=== PATIENT | male | born 1945 | race Caucasian/White ===

== ENCOUNTER → 2018-07-11 | Outpatient (CLI) | payer MEDICARE, BC ==
[~2018-07-11] MED LIST: ALBU90OI INH; ASPI81CH PO; AZELASTINE137 MCG/0.; AZIT250 PO; B-12500 MCG PO; BENZ100A; BUDE6HFA INH; CARBIDOPA-LEVODOPA PO; CEFD300 PO; CETI5 PO; Carbidopa-Levo1 EACH PO; Cartridge Stam1 EACH; DICL75ER PO; DILT180 PO; DIPATR PO; DOC250 PO; DOCU100 PO; DULO60; FENO145 PO; FENOFIBRATE145 MG PO; FLUT1DIS5 INH; Flonase 0.05% N16 GM INH; GABA300 PO; Humulin R500 UNIT/1; INDO25 PO; Ipratr-Albuterol3 ML INH; LANS15EC PO; LEVCAR10; LISI5 PO; LOSA25 PO; Lopressor 25 mg25 MG PO; METF500 PO; METF500C; METO25; MORP15ER PO; MUPI2TO TOP; Nitrostat0.4 MG SL; Norco 5-325 Ta1 EACH PO; Omega 3 1,0001 EACH PO; PRAV20 PO; PREG150 PO; PREG200; Patanase30.5 GM; Prednisone20 MG PO; Prinivil10 MG; SPIRIVA RESPIMAT4 GM; TRAM50; TRAM50 PO; Tiazac180 MG PO; VENL150ER PO; VITAMIN C PO; Venlafaxine HC150 MG; XARELTO20 MG PO
== END ==
LOC: PLD 07:58 → LAB SHORT 07:58
DX: D22.61 Melanocytic nevi of right upper limb, including shoulder (principal)
CPT/HCPCS: 88305

== ENCOUNTER 2019-03-13 15:49 | Emergency (ER) | payer MEDICARE, BC ==
[~2019-03-13] VITALS: Ht 170.2 cm; Wt 76.2 kg
[~2019-03-13 15:49] MED LIST changes: +METO10 PO; +Zofran Odt4 MG SL
[2019-03-13 16:53] LABS: Source, Urine Clean Catch
[2019-03-13 16:56] LABS: Bilirubin, Urine Neg (Neg); Blood, Urine Neg (Neg); Glucose Qualitative, Urine 4+ (Neg); Ketones, Urine 1+ (Neg); Leukocyte Esterase, Urine Neg (Neg); Nitrite, Urine Neg (Neg); Protein, Urine Neg (Neg); Urobilinogen, Urine NORM (Normal)
[2019-03-13 17:02] LABS: BASOPHILS ABSOLUTE AUTO 0.04 K/mm3 (0.00-0.23); BASOPHILS PERCENT AUTO 1 % (0-2); EOSINOPHILS ABSOLUTE AUTO 0.57 K/mm3 (0.00-0.68); EOSINOPHILS PERCENT AUTO 8 % (0-6); Hemoglobin 15.7 g/dL (13.5-17.5); IMMATURE GRAN ABSOLUTE AUTO 0.04 K/mm3 (0.00-0.10); IMMATURE GRAN PERCENT AUTO 1 % (0-1); LYMPHOCYTES ABSOLUTE AUTO 1.78 K/mm3 (0.84-5.20); LYMPHOCYTES PERCENT AUTO 24 % (21-46); MONOCYTES ABSOLUTE AUTO 0.76 K/mm3 (0.16-1.47); MONOCYTES PERCENT AUTO 10 % (4-13); Mean Corpuscular HGB 30.8 pg (26.0-34.0); Mean Corpuscular HGB Conc 34.1 g/dL (31.5-36.5); Mean Corpuscular Volume 90 fL (80-100); Mean Platelet Volume 10.6 fL (9.1-12.4); NEUTROPHILS ABSOLUTE AUTO 4.35 K/mm3 (1.96-9.15); NEUTROPHILS PERCENT AUTO 58 % (41-73); Platelet Count 272 K/mm3 (150-400); RDW Coefficient Variation 12.2 % (11.7-14.2); RDW Standard Deviation 40.4 fL (35.1-46.3); White Blood Cell Count 7.54 K/mm3 (4.00-11.30)
[2019-03-13 17:10] LABS: Color, Urine Yellow (P-Yellow)
[2019-03-13 17:11] LABS: Appearance, Urine Clear (Clear)
[2019-03-13 17:29] LABS: Alanine Aminotransfer (ALT/SGP 18 U/L (12-78); Albumin, Blood 3.8 g/dL (3.4-5.0); Albumin/Globulin Ratio 1.3 (0.8-1.8); Alk Phos 80 U/L (50-136); Anion Gap 8 mmol/L (6-16); Aspartate Aminotrans (AST/SGOT 7 U/L (12-37); Bilirubin, Total 0.3 mg/dL (0.1-1.0); Blood Urea Nitrogen 12 mg/dL (8-24); Bun/Creatinine Ratio 21.9 (12.0-20.0); CO2, Blood 26 mmol/L (21-32); Calcium, Blood 8.7 mg/dL (8.5-10.1); Chloride, Blood 102 mmol/L (98-108); Creatinine, Blood 0.55 mg/dL (0.60-1.20); Glomerular Filtration Rate >60 (60-); Glucose, Blood 267 mg/dL (70-99); Magnesium, Blood 2.1 mg/dL (1.6-2.4); Sodium, Blood 136 mmol/L (136-145); Total Protein, Blood 6.8 g/dL (6.4-8.2)
[2019-03-13] MEDS ORDERED: DULO60 PO (18:07)
[2019-03-13] MEDS ORDERED: LIRA0.6P (18:09)
[2019-03-13] MEDS ORDERED: HEARTBURN TREAT15 MG PO (18:09)
[2019-03-13] MEDS ORDERED: METF500C PO (18:10)
[2019-03-13] MEDS ORDERED: METF500 (18:10)
[2019-03-13] MEDS ORDERED: METO25 PO (18:10)
[2019-03-13] MEDS ORDERED: ONDA4ODT MM (18:46)
== END 2019-03-13 19:10 | disposition home or self-care (01) ==
LOC: ER 15:49
PROVIDERS: Physician Assistant
DX: E86.0 Dehydration (principal); R11.2 Nausea with vomiting, unspecified; R19.7 Diarrhea, unspecified; R10.9 Unspecified abdominal pain; Z91.048 Other nonmedicinal substance allergy status; Z88.1 Allergy status to other antibiotic agents; Z79.899 Other long term (current) drug therapy; Z79.891 Long term (current) use of opiate analgesic; E11.40 Type 2 diabetes mellitus with diabetic neuropathy, unspecified; Z87.891 Personal history of nicotine dependence
CPT/HCPCS: 36415; 71046; 80053; 81003; 83690; 83735; 84484; 85025; 93005; 93010; 96361; 96374; 99284-25; A9270-GY; J2405; J7030

== ENCOUNTER → 2019-03-26 | Outpatient (CLI) | payer MEDICARE, BC ==
[~2019-03-26] MED LIST changes: +DULO60 PO; +HEARTBURN TREAT15 MG PO; +LIRA0.6P; +METF500; +METF500C PO; +METO25 PO; +ONDA4ODT MM
== END | disposition home or self-care (01) ==
LOC: LAB 12:39 → LAB SHORT 12:39
DX: M19.90 Unspecified osteoarthritis, unspecified site (principal); R61 Generalized hyperhidrosis
CPT/HCPCS: 81050; 87493

== ENCOUNTER → 2019-03-29 | Outpatient (CLI) | payer MEDICARE, BC ==
[2019-03-29 12:58] LABS: Adenovirus F 40/41 Not Detected (NOT DETECT); Astrovirus Not Detected (NOT DETECT); Campylobacter Sp Not Detected (NOT DETECT); Cryptosporidium Not Detected (NOT DETECT); Cyclospora Cayetanensis Not Detected (NOT DETECT); E. Coli O157 Not Detected (NOT DETECT); Entamoeba Histolytica Not Detected (NOT DETECT); Enteroaggregative E. coli-EAEC Not Detected (NOT DETECT); Enteropathogenic E. coli-EPEC Not Detected (NOT DETECT); Enterotoxigenic E. coli-ETEC Not Detected (NOT DETECT); Giardia Lamblia Not Detected (NOT DETECT); Norovirus GI/GII Not Detected (NOT DETECT); Plesiomonas Shigelloides Not Detected (NOT DETECT); Rotavirus A Not Detected (NOT DETECT); Salmonella Sp Not Detected (NOT DETECT); Sapovirus Not Detected (NOT DETECT); Shiga Toxin-prod E. coli-STEC Not Detected (NOT DETECT); Shigella/Enteroin E. coli-EIEC Not Detected (NOT DETECT); Vibrio Cholerae Not Detected (NOT DETECT); Vibrio Sp Not Detected (NOT DETECT); Yersinia Enterocolitica Not Detected (NOT DETECT)
== END | disposition home or self-care (01) ==
LOC: LAB SHORT 10:04 → LAB 10:04 → LAB FUT 03-22 12:50
PROVIDERS: Internal Medicine
DX: R19.7 Diarrhea, unspecified (principal)
CPT/HCPCS: 87507

== ENCOUNTER 2020-04-15 08:53 | Day surgery (SDC) | payer MEDICARE, BC ==
[~2020-04-15] VITALS: Ht 172.7 cm; Wt 80.1 kg
--- NOTE | 2020-04-15 10:47 | NUR ---
04/15/20 1047 Heydi Galeana 200UNITS BOTULINUMTOXINA MIXED WITH 5CC NS INJECTED BY
== END 2020-04-15 11:17 | disposition home or self-care (01) ==
LOC: ORSCSDS 08:53
PROVIDERS: Internal Medicine Gastroenterology
PROC: 3E0G8GC Introduction of Other Therapeutic Substance into Upper GI, Via Natural or Artificial Opening Endoscopic (ICD-10-PCS; principal; 2020-04-15 10:45)
DX: K31.84 Gastroparesis (principal); R11.2 Nausea with vomiting, unspecified; K20.9 Esophagitis, unspecified; K29.80 Duodenitis without bleeding; I10 Essential (primary) hypertension; E11.9 Type 2 diabetes mellitus without complications; G47.33 Obstructive sleep apnea (adult) (pediatric); Z87.891 Personal history of nicotine dependence; Z79.899 Other long term (current) drug therapy; Z79.84 Long term (current) use of oral hypoglycemic drugs; J45.909 Unspecified asthma, uncomplicated
CPT/HCPCS: 82947; J0585; J2704; J7120

== ENCOUNTER → 2020-07-24 | Outpatient (CLI) | payer MEDICARE, BC ==
[2020-07-26 15:17] LABS: Adenovirus F 40/41 Not Detected (NOT DETECT); Astrovirus Not Detected (NOT DETECT); Campylobacter Sp Not Detected (NOT DETECT); Cryptosporidium Not Detected (NOT DETECT); Cyclospora Cayetanensis Not Detected (NOT DETECT); E. Coli O157 Not Detected (NOT DETECT); Entamoeba Histolytica Not Detected (NOT DETECT); Enteroaggregative E. coli-EAEC Not Detected (NOT DETECT); Enteropathogenic E. coli-EPEC Not Detected (NOT DETECT); Enterotoxigenic E. coli-ETEC Not Detected (NOT DETECT); Giardia Lamblia Not Detected (NOT DETECT); Norovirus GI/GII Not Detected (NOT DETECT); Plesiomonas Shigelloides Not Detected (NOT DETECT); Rotavirus A Not Detected (NOT DETECT); Salmonella Sp Not Detected (NOT DETECT); Sapovirus Not Detected (NOT DETECT); Shiga Toxin-prod E. coli-STEC Not Detected (NOT DETECT); Shigella/Enteroin E. coli-EIEC Not Detected (NOT DETECT); Vibrio Cholerae Not Detected (NOT DETECT); Vibrio Sp Not Detected (NOT DETECT); Yersinia Enterocolitica Not Detected (NOT DETECT)
[2020-07-28 12:07] LABS: FATS, NEUTRAL Normal (.); FATS, TOTAL Normal (.)
== END | disposition home or self-care (01) ==
LOC: LAB EV 17:30 → LAB SHORT 17:30
PROVIDERS: Internal Medicine Gastroenterology
DX: R19.7 Diarrhea, unspecified (principal)
CPT/HCPCS: 0097U; 82656; 82705; 87177; 87209; 89055

== ENCOUNTER 2020-12-30 09:37 | Day surgery (SDC) | payer MEDICARE, BC ==
[~2020-12-30] VITALS: Ht 172.7 cm; Wt 78.6 kg
[~2020-12-30 09:37] MED LIST changes: +FD GUARD PO; +LOPE2C PO; +LOSA50 PO; +NITR.4SL SL; +PREG200 PO; +SPIRIVA RESPIMAT4 G3 INH; +VENL75ER PO
--- NOTE | 2020-12-30 10:29 | NUR ---
12/30/[address] WAS NOTIFIED THAT CBG WAS 305. HE VERBALIZED UNDERSTANDING AND HAS NO FURTHER ORDERS AT THIS TIME
== END 2020-12-30 12:30 | disposition home or self-care (01) ==
LOC: ORSCSDS 09:37
PROVIDERS: Internal Medicine Gastroenterology
PROC: 0DBK8ZX Excision of Ascending Colon, Via Natural or Artificial Opening Endoscopic, Diagnostic (ICD-10-PCS; principal; 2020-12-30 11:00)
PROC: 0DBH8ZX Excision of Cecum, Via Natural or Artificial Opening Endoscopic, Diagnostic (ICD-10-PCS; principal; 2020-12-30 11:00)
PROC: 0DBL8ZX Excision of Transverse Colon, Via Natural or Artificial Opening Endoscopic, Diagnostic (ICD-10-PCS; principal; 2020-12-30 11:00)
DX: Z12.11 Encounter for screening for malignant neoplasm of colon (principal); D12.0 Benign neoplasm of cecum; D12.2 Benign neoplasm of ascending colon; D12.3 Benign neoplasm of transverse colon; K57.30 Diverticulosis of large intestine without perforation or abscess without bleeding; Z86.010 Personal history of colon polyps; Z80.0 Family history of malignant neoplasm of digestive organs; G47.33 Obstructive sleep apnea (adult) (pediatric); E11.9 Type 2 diabetes mellitus without complications; I10 Essential (primary) hypertension; J44.9 Chronic obstructive pulmonary disease, unspecified; Z79.84 Long term (current) use of oral hypoglycemic drugs; Z79.899 Other long term (current) drug therapy; Z87.891 Personal history of nicotine dependence
CPT/HCPCS: 82947; 88305; J2704; J7120

== ENCOUNTER 2021-02-10 17:01 | Inpatient (IN) | payer OTHER, MEDICARE, BC ==
[~2021-02-10] VITALS: Ht 172.7 cm; Wt 74.0 kg
[2021-02-10 17:47] LABS: Troponin I 0.015 ng/mL (0.000-0.040)
[2021-02-10 17:52] LABS: Alanine Aminotransfer (ALT/SGP 31 U/L (12-78); Albumin, Blood 3.7 g/dL (3.4-5.0); Albumin/Globulin Ratio 1.2 (0.8-1.8); Alk Phos 57 U/L (50-136); Anion Gap 9 mmol/L (6-16); Aspartate Aminotrans (AST/SGOT 17 U/L (12-37); BASOPHILS ABSOLUTE AUTO 0.06 K/mm3 (0.00-0.23); BASOPHILS PERCENT AUTO 1 % (0-2); Bilirubin, Total 0.4 mg/dL (0.1-1.0); Blood Urea Nitrogen 17 mg/dL (8-24); Bun/Creatinine Ratio 23.4 (12.0-20.0); CO2, Blood 21 mmol/L (21-32); Calcium, Blood 9.4 mg/dL (8.5-10.1); Chloride, Blood 109 mmol/L (98-108); Creatinine, Blood 0.73 mg/dL (0.60-1.20); EOSINOPHILS ABSOLUTE AUTO 0.43 K/mm3 (0.00-0.68); EOSINOPHILS PERCENT AUTO 5 % (0-6); Glomerular Filtration Rate >60 (60-); Glucose, Blood 200 mg/dL (70-99); Hemoglobin 15.9 g/dL (13.5-17.5); IMMATURE GRAN ABSOLUTE AUTO 0.08 K/mm3 (0.00-0.10); IMMATURE GRAN PERCENT AUTO 1 % (0-1); LYMPHOCYTES ABSOLUTE AUTO 2.35 K/mm3 (0.84-5.20); LYMPHOCYTES PERCENT AUTO 28 % (21-46); MONOCYTES ABSOLUTE AUTO 1.15 K/mm3 (0.16-1.47); MONOCYTES PERCENT AUTO 14 % (4-13); Mean Corpuscular HGB 31.5 pg (26.0-34.0); Mean Corpuscular HGB Conc 34.6 g/dL (31.5-36.5); Mean Corpuscular Volume 91 fL (80-100); Mean Platelet Volume 11.3 fL (9.1-12.4); NEUTROPHILS ABSOLUTE AUTO 4.35 K/mm3 (1.96-9.15); NEUTROPHILS PERCENT AUTO 52 % (41-73); Platelet Count 257 K/mm3 (150-400); Potassium, Blood 4.5 mmol/L (3.5-5.5); RDW Coefficient Variation 12.7 % (11.7-14.2); RDW Standard Deviation 42.1 fL (35.1-46.3); Red Blood Cell Count 5.04 M/mm3 (4.30-5.90); Sodium, Blood 139 mmol/L (136-145); Total Protein, Blood 6.7 g/dL (6.4-8.2); White Blood Cell Count 8.42 K/mm3 (4.00-11.30)
[2021-02-10] MEDS ORDERED: FENO145 PO (18:53)
[2021-02-10] MEDS ORDERED: CYCL10 PO (18:53)
[2021-02-10] MEDS ORDERED: LISI10 PO (18:54)
[2021-02-10] MEDS ORDERED: METOPROLOL SUCC25 MG PO (18:54)
[2021-02-10] MEDS ORDERED: DONEPEZIL HCL10 MG PO (18:55)
[2021-02-10] MEDS ORDERED: DILT180 PO (18:55)
[2021-02-10] MEDS ORDERED: CARBIDOPA-LEVO1 EA21 PO (18:56)
[2021-02-10] MEDS ORDERED: ATOR40TA PO (18:56)
[2021-02-10] MEDS ORDERED: METF500C PO (18:57)
[2021-02-10] MEDS ORDERED: PRAMIPEXOLE0.125 M1 PO (18:57)
[2021-02-10] MEDS ORDERED: BASAGLAR K100 UNIT/1 SC (18:58)
[2021-02-10] MEDS ORDERED: NOVOLOG FL100 UNIT/3 SC ×2 (18:58→20:04)
[2021-02-10] MEDS ORDERED: DULO60 PO (18:58)
[2021-02-10] MEDS ORDERED: Acarbose25 MG PO (18:59)
[2021-02-10] MEDS ORDERED: LANS15EC PO (21:14)
[2021-02-10] MEDS ORDERED: MORPHINE SULFAT15 M1 PO (21:16)
[2021-02-10] MEDS ORDERED: JARDIANCE25 MG PO (21:22)
[2021-02-11 09:41] LABS: Influenza A, PCR NEGATIVE (NEGATIVE); Influenza B, PCR NEGATIVE (NEGATIVE); Resp Syncytial Virus, PCR NEGATIVE (NEGATIVE); SARS-Cov-2 (COVID-19) PCR, MMC NEGATIVE (NEGATIVE)
[2021-02-12 04:52] LABS: BASOPHILS ABSOLUTE AUTO 0.04 K/mm3 (0.00-0.23); BASOPHILS PERCENT AUTO 1 % (0-2); EOSINOPHILS ABSOLUTE AUTO 0.32 K/mm3 (0.00-0.68); EOSINOPHILS PERCENT AUTO 4 % (0-6); Hematocrit 45.1 % (37.0-53.0); Hemoglobin 15.5 g/dL (13.5-17.5); IMMATURE GRAN ABSOLUTE AUTO 0.04 K/mm3 (0.00-0.10); IMMATURE GRAN PERCENT AUTO 1 % (0-1); LYMPHOCYTES ABSOLUTE AUTO 1.72 K/mm3 (0.84-5.20); LYMPHOCYTES PERCENT AUTO 24 % (21-46); MONOCYTES ABSOLUTE AUTO 0.86 K/mm3 (0.16-1.47); MONOCYTES PERCENT AUTO 12 % (4-13); Mean Corpuscular HGB 30.8 pg (26.0-34.0); Mean Corpuscular HGB Conc 34.4 g/dL (31.5-36.5); Mean Corpuscular Volume 90 fL (80-100); NEUTROPHILS ABSOLUTE AUTO 4.31 K/mm3 (1.96-9.15); NEUTROPHILS PERCENT AUTO 59 % (41-73); Platelet Count 240 K/mm3 (150-400); RDW Coefficient Variation 12.7 % (11.7-14.2); RDW Standard Deviation 41.1 fL (35.1-46.3); Red Blood Cell Count 5.04 M/mm3 (4.30-5.90); White Blood Cell Count 7.29 K/mm3 (4.00-11.30)
[2021-02-12 05:16] LABS: Anion Gap 6 mmol/L (6-16); Blood Urea Nitrogen 12 mg/dL (8-24); Bun/Creatinine Ratio 17.6 (12.0-20.0); CO2, Blood 24 mmol/L (21-32); Calcium, Blood 8.6 mg/dL (8.5-10.1); Chloride, Blood 110 mmol/L (98-108); Creatinine, Blood 0.68 mg/dL (0.60-1.20); Glomerular Filtration Rate >60 (60-); Glucose, Blood 244 mg/dL (70-99); Sodium, Blood 140 mmol/L (136-145)
[2021-02-12] MEDS ORDERED: ASPI81CH PO (09:59)
[2021-02-12] MEDS ORDERED: TICA90TA PO (10:00)
== END 2021-02-12 11:35 | disposition home or self-care (01) | DRG 247 ==
LOC: ER 17:01 → PCU 17:02
PROVIDERS: Emergency Medicine; Internal Medicine Cardiovascular Disease; ADMIT Internal Medicine
PROC: 4A023N7 Measurement of Cardiac Sampling and Pressure, Left Heart, Percutaneous Approach (ICD-10-PCS; principal; 2021-02-11)
PROC: 027034Z Dilation of Coronary Artery, One Artery with Drug-eluting Intraluminal Device, Percutaneous Approach (ICD-10-PCS; 2021-02-11)
PROC: B2111ZZ Fluoroscopy of Multiple Coronary Arteries using Low Osmolar Contrast (ICD-10-PCS; 2021-02-11)
PROC: 4A033BC Measurement of Arterial Pressure, Coronary, Percutaneous Approach (ICD-10-PCS; 2021-02-11)
DX: I21.4 Non-ST elevation (NSTEMI) myocardial infarction (principal); I42.1 Obstructive hypertrophic cardiomyopathy; Z66 Do not resuscitate; E11.40 Type 2 diabetes mellitus with diabetic neuropathy, unspecified; G20 Parkinson's disease; G47.33 Obstructive sleep apnea (adult) (pediatric); K21.9 Gastro-esophageal reflux disease without esophagitis; I25.10 Atherosclerotic heart disease of native coronary artery without angina pectoris; I10 Essential (primary) hypertension; E78.5 Hyperlipidemia, unspecified; H91.90 Unspecified hearing loss, unspecified ear; Z20.822 Contact with and (suspected) exposure to COVID-19; Z98.890 Other specified postprocedural states; Z90.49 Acquired absence of other specified parts of digestive tract; Z89.021 Acquired absence of right finger(s); Z87.891 Personal history of nicotine dependence; Z88.8 Allergy status to other drugs, medicaments and biological substances; Z91.048 Other nonmedicinal substance allergy status; Z79.4 Long term (current) use of insulin; Z79.899 Other long term (current) drug therapy; Z86.711 Personal history of pulmonary embolism
CPT/HCPCS: 0241U; 36415; 71046; 76937; 80048; 80053; 82947; 83880; 84484; 85025; 85347; 85379; 85730; 93005; 93010; 93306; 93454; 93571; 94660; 94762; 96372; 96375; 99152; 99285-25; A9270; A9270-GY; C1725; C1769; C1874; C1887; C1894; C9600; G0378; J1644; J1650; J2250; J3010; J7030; J7040; J7050; Q9967

== ENCOUNTER 2022-04-20 12:04 | Emergency (ER) | payer OTHER, BC ==
[~2022-04-20] VITALS: Ht 170.2 cm; Wt 81.7 kg
[~2022-04-20 12:04] MED LIST changes: +ATOR40TA PO; +Acarbose25 MG PO; +BASAGLAR K100 UNIT/1 SC; +CARBIDOPA-LEVO1 EA21 PO; +CYCL10 PO; +DONEPEZIL HCL10 MG PO; +JARDIANCE25 MG PO; +LISI10 PO; +METOPROLOL SUCC25 MG PO; +MORPHINE SULFAT15 M1 PO; +NOVOLOG FL100 UNIT/3 SC; +PRAMIPEXOLE0.125 M1 PO; +TICA90TA PO
[2022-04-20 12:57] LABS: BASOPHILS ABSOLUTE AUTO 0.05 K/mm3 (0.00-0.23); BASOPHILS PERCENT AUTO 0 % (0-2); EOSINOPHILS ABSOLUTE AUTO 0.37 K/mm3 (0.00-0.68); EOSINOPHILS PERCENT AUTO 3 % (0-6); Hematocrit 46.1 % (37.0-53.0); Hemoglobin 15.8 g/dL (13.5-17.5); IMMATURE GRAN ABSOLUTE AUTO 0.06 K/mm3 (0.00-0.10); IMMATURE GRAN PERCENT AUTO 0 % (0-1); LYMPHOCYTES ABSOLUTE AUTO 1.69 K/mm3 (0.84-5.20); LYMPHOCYTES PERCENT AUTO 12 % (21-46); MONOCYTES PERCENT AUTO 9 % (4-13); Mean Corpuscular HGB 30.5 pg (26.0-34.0); Mean Corpuscular HGB Conc 34.3 g/dL (31.5-36.5); Mean Corpuscular Volume 89 fL (80-100); NEUTROPHILS ABSOLUTE AUTO 10.38 K/mm3 (1.96-9.15); NEUTROPHILS PERCENT AUTO 75 % (41-73); Platelet Count 252 K/mm3 (150-400); RDW Coefficient Variation 12.9 % (11.7-14.2); Red Blood Cell Count 5.18 M/mm3 (4.30-5.90); White Blood Cell Count 13.85 K/mm3 (4.00-11.30)
[2022-04-20 13:26] LABS: Albumin, Blood 3.6 g/dL (3.4-5.0); Albumin/Globulin Ratio 1.2 (0.8-1.8); Bilirubin, Total 0.6 mg/dL (0.1-1.0); Bun/Creatinine Ratio 30.4 (12.0-20.0); Calcium, Blood 9.4 mg/dL (8.5-10.1); Creatinine, Blood 0.62 mg/dL (0.60-1.20); Globulin, Blood 3.1 g/dL (2.2-4.0); Potassium, Blood 4.6 mmol/L (3.5-5.5); Total Protein, Blood 6.7 g/dL (6.4-8.2)
[2022-04-20] MEDS ORDERED: Doxycycline Mo100 M1 PO (16:36)
== END 2022-04-20 17:16 | disposition home or self-care (01) ==
LOC: ER 12:04
PROVIDERS: Physician Assistant
DX: J18.9 Pneumonia, unspecified organism (principal); R00.8 Other abnormalities of heart beat; E11.40 Type 2 diabetes mellitus with diabetic neuropathy, unspecified; Z96.41 Presence of insulin pump (external) (internal); Z87.891 Personal history of nicotine dependence
CPT/HCPCS: 36415; 71046; 80053; 83690; 83880; 84484; 85025; J0456; J0696; J7050

== ENCOUNTER 2022-12-21 08:58 | Emergency (ER) | payer OTHER ==
[~2022-12-21] VITALS: Ht 172.7 cm; Wt 81.7 kg
[~2022-12-21 08:58] MED LIST changes: +Doxycycline Mo100 M1 PO
[2022-12-21] MEDS ORDERED: PREG50 PO (09:19)
[2022-12-21] MEDS ORDERED: HYDACE10B PO (09:20)
[2022-12-21] MEDS ORDERED: METF500 PO (09:21)
[2022-12-21 09:22] LABS: BASOPHILS ABSOLUTE AUTO 0.09 K/mm3 (0.00-0.23); BASOPHILS PERCENT AUTO 1 % (0-2); EOSINOPHILS ABSOLUTE AUTO 0.22 K/mm3 (0.00-0.68); EOSINOPHILS PERCENT AUTO 1 % (0-6); Hematocrit 52.4 % (37.0-53.0); Hemoglobin 17.9 g/dL (13.5-17.5); IMMATURE GRAN ABSOLUTE AUTO 0.25 K/mm3 (0.00-0.10); IMMATURE GRAN PERCENT AUTO 2 % (0-1); LYMPHOCYTES ABSOLUTE AUTO 1.92 K/mm3 (0.84-5.20); LYMPHOCYTES PERCENT AUTO 12 % (21-46); MONOCYTES ABSOLUTE AUTO 1.48 K/mm3 (0.16-1.47); MONOCYTES PERCENT AUTO 9 % (4-13); Mean Corpuscular HGB 31.3 pg (26.0-34.0); Mean Corpuscular HGB Conc 34.2 g/dL (31.5-36.5); Mean Corpuscular Volume 92 fL (80-100); Mean Platelet Volume 10.9 fL (9.1-12.4); NEUTROPHILS ABSOLUTE AUTO 11.73 K/mm3 (1.96-9.15); NEUTROPHILS PERCENT AUTO 75 % (41-73); Platelet Count 308 K/mm3 (150-400); RDW Coefficient Variation 12.6 % (11.7-14.2); RDW Standard Deviation 42.9 fL (35.1-46.3); Red Blood Cell Count 5.72 M/mm3 (4.30-5.90); White Blood Cell Count 15.69 K/mm3 (4.00-11.30)
[2022-12-21] MEDS ORDERED: OZEMPIC1 MG/0.72 (09:22)
[2022-12-21 09:56] LABS: Albumin, Blood 3.2 g/dL (3.4-5.0); Albumin/Globulin Ratio 0.9 (0.8-1.8); Bilirubin, Total 0.7 mg/dL (0.1-1.0); Bun/Creatinine Ratio 21.4 (12.0-20.0); Calcium, Blood 9.6 mg/dL (8.5-10.1); Creatinine, Blood 1.03 mg/dL (0.60-1.20); Globulin, Blood 3.5 g/dL (2.2-4.0); Potassium, Blood 4.8 mmol/L (3.5-5.5); Total Protein, Blood 6.7 g/dL (6.4-8.2)
[2022-12-21] MEDS ORDERED: Levaquin500 MG PO (12:43)
== END 2022-12-21 13:09 | disposition home or self-care (01) ==
LOC: ER 08:58
PROVIDERS: Emergency Medicine
DX: J44.1 Chronic obstructive pulmonary disease with (acute) exacerbation (principal); Z91.048 Other nonmedicinal substance allergy status; Z88.1 Allergy status to other antibiotic agents; Z79.899 Other long term (current) drug therapy; Z79.4 Long term (current) use of insulin; E11.40 Type 2 diabetes mellitus with diabetic neuropathy, unspecified; I25.2 Old myocardial infarction; Z87.891 Personal history of nicotine dependence
CPT/HCPCS: 71046; 80053; 84484; 85025; 93005; 93010; 99285-25

== ENCOUNTER → 2023-03-10 | Outpatient (CLI) | payer MEDICARE, BC ==
[~2023-03-10] MED LIST changes: +ALOGLIPTIN25 M7 PO; +AMOCLA875 PO; +CARBIDOPA-LEVO1 EA18 PO; +DOXY100 PO; +HYDACE10B PO; +Levaquin500 MG PO; +MS CONTIN15 MG PO; +OZEMPIC1 MG/0.72; +Omeprazole20 M1 PO; +PREG50 PO
[2023-03-11 18:48] LABS: Microalb/Creat Ratio UR, Rand Unable to Calculate mg/g (0.000-30.000); Microalbumin, Random Urine <5.000 mg/L (0.000-20.000)
== END | disposition home or self-care (01) ==
LOC: LAB 18:00 → LAB SHORT 18:00
PROVIDERS: Internal Medicine Endocrinology, Diabetes & Metabolism
DX: E11.65 Type 2 diabetes mellitus with hyperglycemia (principal)
CPT/HCPCS: 82043; 82570

== ENCOUNTER 2024-04-21 17:51 | Inpatient (IN) | payer MEDICARE, BC ==
[~2024-04-21] VITALS: Ht 172.7 cm; Wt 74.3 kg
[~2024-04-21 17:51] MED LIST changes: +ACET325 PO; +ATOR10 PO; +Aspir 8181 MG PO; +DULO30 PO; +Methocarbamol500 MG PO; +NOVOLIN 70100 UNIT/3 SC; +Norco 10-325 T1 EACH PO; -OZEMPIC1 MG/0.72; +OZEMPIC1 MG/0.72 SC; +TAMS.4ER PO
[2024-04-21 18:16] LABS: BASOPHILS ABSOLUTE AUTO 0.07 K/mm3 (0.00-0.23); BASOPHILS PERCENT AUTO 1 % (0-2); EOSINOPHILS ABSOLUTE AUTO 0.34 K/mm3 (0.00-0.68); EOSINOPHILS PERCENT AUTO 5 % (0-6); Hemoglobin 15.8 g/dL (13.5-17.5); IMMATURE GRAN ABSOLUTE AUTO 0.05 K/mm3 (0.00-0.10); IMMATURE GRAN PERCENT AUTO 1 % (0-1); LYMPHOCYTES ABSOLUTE AUTO 1.58 K/mm3 (0.84-5.20); LYMPHOCYTES PERCENT AUTO 22 % (21-46); MONOCYTES ABSOLUTE AUTO 1.11 K/mm3 (0.16-1.47); MONOCYTES PERCENT AUTO 15 % (4-13); Mean Corpuscular HGB 31.2 pg (26.0-34.0); Mean Corpuscular HGB Conc 34.3 g/dL (31.5-36.5); Mean Corpuscular Volume 91 fL (80-100); Mean Platelet Volume 10.9 fL (9.1-12.4); NEUTROPHILS ABSOLUTE AUTO 4.14 K/mm3 (1.96-9.15); NEUTROPHILS PERCENT AUTO 57 % (41-73); Platelet Count 252 K/mm3 (150-400); RDW Coefficient Variation 13.7 % (11.7-14.2); Red Blood Cell Count 5.07 M/mm3 (4.30-5.90); White Blood Cell Count 7.29 K/mm3 (4.00-11.30)
[2024-04-21 18:28] LABS: Albumin, Blood 3.4 g/dL (3.4-5.0); Albumin/Globulin Ratio 1.2 (0.8-1.8); Bilirubin, Total 0.3 mg/dL (0.1-1.0); Bun/Creatinine Ratio 23.6 (12.0-20.0); Calcium, Blood 8.9 mg/dL (8.5-10.1); Creatinine, Blood 0.64 mg/dL (0.60-1.20); Globulin, Blood 2.9 g/dL (2.2-4.0); Potassium, Blood 4.1 mmol/L (3.5-5.5); Total Protein, Blood 6.3 g/dL (6.4-8.2)
[2024-04-21] MEDS ORDERED: NS 1,000 ML IV SCH (19:10)
[2024-04-21] MEDS ORDERED: Ondansetron HCl 2 MG / ML 2ML Vial IV PRN (22:45)
[2024-04-21] MEDS ORDERED: Acetaminophen 325 MG TABLET PO PRN (22:45)
[2024-04-21] MEDS ORDERED: Lactated Ringer's 1,000 ML IV SCH (23:00)
[2024-04-22] VITALS (34 sets, daily range): BP systolic 100–160; BP diastolic 52–79
--- NOTE | 2024-04-22 00:13 | NUR ---
[facility] TO [facility] CALL [facility] TO [facility]'S MEDICAL RECORDS AT 0010. SPOKE WITH CARLOS AND SHE STATED SHE WILL FAX THEM TO [phone].
[2024-04-22] MEDS ORDERED: Methocarbamol 500 MG Tab PO PRN (00:50)
--- NOTE | 2024-04-22 01:22 | NUR ---
RECEVIED REPORT FROM [facility] IN ED. PATIENT ON ARRIVAL TO ICU IS A&O X4. NEURO IS INTACT EXCEPT FOR NUMBNESS/TINGLING IN ALL EXTERMITES AT BASELINE. CARDIAC PATIENT IN NSR, SBP 90-120S. RESP PATIETN IS ON RA, LUNGS SOUND CLEAR. PATIENT VOIDED BY URINAL. LR RUNNING AT 75. PLAN FOR MRI IN THE AM.
[2024-04-22 03:17] LABS: BASOPHILS ABSOLUTE AUTO 0.05 K/mm3 (0.00-0.23); BASOPHILS PERCENT AUTO 1 % (0-2); EOSINOPHILS ABSOLUTE AUTO 0.44 K/mm3 (0.00-0.68); EOSINOPHILS PERCENT AUTO 5 % (0-6); Hematocrit 42.6 % (37.0-53.0); Hemoglobin 14.5 g/dL (13.5-17.5); IMMATURE GRAN ABSOLUTE AUTO 0.05 K/mm3 (0.00-0.10); IMMATURE GRAN PERCENT AUTO 1 % (0-1); LYMPHOCYTES ABSOLUTE AUTO 2.34 K/mm3 (0.84-5.20); LYMPHOCYTES PERCENT AUTO 27 % (21-46); MONOCYTES ABSOLUTE AUTO 1.12 K/mm3 (0.16-1.47); MONOCYTES PERCENT AUTO 13 % (4-13); Mean Corpuscular HGB 31.3 pg (26.0-34.0); Mean Corpuscular Volume 92 fL (80-100); NEUTROPHILS ABSOLUTE AUTO 4.63 K/mm3 (1.96-9.15); NEUTROPHILS PERCENT AUTO 54 % (41-73); Platelet Count 223 K/mm3 (150-400); RDW Coefficient Variation 13.9 % (11.7-14.2); RDW Standard Deviation 47.1 fL (35.1-46.3); Red Blood Cell Count 4.64 M/mm3 (4.30-5.90); White Blood Cell Count 8.63 K/mm3 (4.00-11.30)
[2024-04-22 03:52] LABS: Magnesium, Blood 2.3 mg/dL (1.6-2.4)
[2024-04-22 03:53] LABS: Albumin/Globulin Ratio 1.1 (0.8-1.8); Bilirubin, Total 0.3 mg/dL (0.1-1.0); Bun/Creatinine Ratio 22.8 (12.0-20.0); Calcium, Blood 8.8 mg/dL (8.5-10.1); Creatinine, Blood 0.66 mg/dL (0.60-1.20); Globulin, Blood 2.7 g/dL (2.2-4.0); Potassium, Blood 4.1 mmol/L (3.5-5.5); Total Protein, Blood 5.7 g/dL (6.4-8.2)
[2024-04-22] MEDS ORDERED: Insulin Regular 100 UNIT/ML 10ML Vial SC SCH (07:30)
[2024-04-22] MEDS ORDERED: Insulin Isoph 70 / Reg 30 100 Unit/ML 10ML Vial SC SCH (07:30)
[2024-04-22] MEDS ORDERED: Aspirin 81 MG Chew PO SCH (09:00)
[2024-04-22] MEDS ORDERED: DULoxetine HCL 60 MG Capsule DR PO SCH (09:00)
[2024-04-22] MEDS ORDERED: Docusate Sodium 100 MG Cap PO SCH (09:00)
[2024-04-22] MEDS ORDERED: Atorvastatin 10 MG Tab PO SCH (09:00)
[2024-04-22] MEDS ORDERED: Pregabalin 75 MG Cap PO SCH (09:00)
--- NOTE | 2024-04-22 12:07 | NUR ---
REASSESSMENT PT HAS BEEN RESTING IN BED THROUGHOUT THE MORNING. GOT UP ONCE WITH MINIMAL ASSIST TO USE THE BATHROOM. DENIES ANY DIZZINESS WITH GETTING OUT OF BED. NEURO ASSESSMENT REMAINS UNCHANGED. MRI IS DETERMINING IF IT CAN BE DONE HERE. RECORDS OF SHUNT PLACEMENT OBTAINED FROM [facility] AND GIVEN TO DELIVERY MANAGER. LUNGS REMAIN CLEAR, RA, BP STABLE. EATING WITHOUT DIFFICULTY, VOIDING USING URINAL. DR. HERRING GAVE OK FOR PT TO BE MED, NO TELE.
--- NOTE | 2024-04-22 12:20 | NUR ---
DIRECTOR OF INSTITUTIONAL RESEARCH CALLED AND SAID THAT SINCE PT'S SHUNT IS PROGRAMMABLE THEY ARE NTO ABLE TO THE MRI HERE BECAUSE IT NEEDS TO BE INTERROGATED AFTERWARDS TO MAKE SURE IT IS STILL FUNCTIONING AND OUR HOSPITAL DOESN'T HAVE THAT CAPABILITY. DR. HERRING CALLED AND INFORMED OF THIS.
--- NOTE | 2024-04-22 15:13 | NUR ---
TRANSFER PT TRANSFERRED TO 356 VIA WC WITH RN. REPORT GIVEN TO SRINATH CARUSO. PT'S TABLET AND PHONE WITH PT. PT CALLED HIS TO UPDATE HER.
--- NOTE | 2024-04-22 17:31 | NUR ---
SHIFT SUMMARY 1550 RECEIVED PT TO RM 356 VIA W/C FROM ICU 12. PT IS A&O AND ABLE TO TX SELF TO BED. SBA TO BTHRM USING CANE AND ASSISTANCE WITH IV PUMP. PT ADMITTED FOR HYPOTENSION AND DIZZINESS. PT REPORTING FALL AT HOME WITH SORENESS TO R HIP. PT TO HAVE HEAD CT AT 1815 TONIGHT R/T SHUNT. PER REPORT, PT NEEDING MRI TO ASSESS FLOW OF SHUNT, BUT UNABLE TO COMPLETE HERE. VS HAVE BEEN STABLE; SEE CHART. NO C/O. SITTING UP TO EOB EATING DINNER. SLIGHTLY [place]. CALL LT IN REACH. ABLE TO MAKE NEEDS KNOWN.
[2024-04-22] MEDS ORDERED: Donepezil HCl 5 MG Tab PO SCH (21:00)
--- NOTE | 2024-04-22 22:08 | NUR ---
PT HAS ORDERS FOR COBRA FOR IN THE AM TO [facility], ERNST REPORTS THEY WILL GIVE US AN OFFICIAL ROOM NUMBER IN THE AM. UPDATED PT ON THE TRANSFER, PT SIGNED THE CONSENT FOR TRANSFER FORM. SPOKE WITH THE PATIENT'S , VASHTI, UPDATED HER ON THE TRANSFER. PT AND WILL BE UPDATED WITH THE ROOM NUMBER AND THE ESTIMATED TIME OF TRANSFER FOR THE AM SOON WE HAVE THAT INFORMATION. WILL LET PRIMARY RN KNOW.
[2024-04-22] MEDS ORDERED: Oxybutynin Chlo10 MG PO (23:41)
[2024-04-22] MEDS ORDERED: SILDENAFIL CIT100 MG PO (23:41)
[2024-04-23 05:17] VITALS: BP 136/75
--- NOTE | 2024-04-23 05:31 | NUR ---
SHIFT SUMMARY PT HAD IMAGING (CT) AT BEGINNING OF SHIFT. RESULTS WERE LESS THAN FAVORABLE, SHOWING MULTIPLE SMALL SUBDURAL HEMORRHAGES, AND PT WILL BE TRANSFERRED TO [facility] IN [place] TO CONSULT WITH NEUROSURGEON. (PER DR. MCBRIDE) PT AND HIS HAVE BEEN INFROMED OF THE PLAN OF CARE, AND [facility] TRANSPORT HAS BEEN CONTACTED FOR TRANSFER THIS MORNING. PT SLEPT SOUNDLY THROUGH NIGHT, AND IS READY FOR TRANSPORT. HE HAS BEEN PLEASANT AND COOPERATIVE IN HIS CARE.
[2024-04-23 07:38] VITALS: BP 138/64
[2024-04-23 15:55] VITALS: BP 133/81
[2024-04-23 18:09] VITALS: BP 134/69
--- NOTE | 2024-04-23 18:10 | NUR ---
CALLED REPORT TO SRINATH LAUREANO AT [place] [id number]
--- NOTE | 2024-04-23 18:11 | NUR ---
SUMMARY- PT A/O X4, ONLY NERUO COMPLAINT REMIANS DIZZINESS. STATES HE FEELS LIKE HE'S FLOATING IN A CLOUD. PT AMBULATES WITHOUT DIFFICULTY LONG HE HAS HIS GUTIERREZ FOR BALANCE. PT TOLEREATING FOOD AND FLUID. VSS. AWAITING BED AT [place]- BED ASSIGNMENT RECEIVED 1800 AND REPORT CALLED TO [facility] ROOM 4425, PT CALLED AND MADE HER AWARE OF THE PLAN
--- NOTE | 2024-04-23 20:02 | NUR ---
PT, transfered out to [place].
== END 2024-04-23 20:19 | DRG 83 ==
LOC: ER 17:51 → ICUE 17:52 → MEDS 04-22 15:48
PROVIDERS: Emergency Medicine; ADMIT Student in an Organized Health Care Education/Training Program
DX: S06.5XAA Traumatic subdural hemorrhage with loss of consciousness status unknown, initial encounter (principal); I42.1 Obstructive hypertrophic cardiomyopathy; I95.1 Orthostatic hypotension; I10 Essential (primary) hypertension; G47.33 Obstructive sleep apnea (adult) (pediatric); H91.90 Unspecified hearing loss, unspecified ear; E11.40 Type 2 diabetes mellitus with diabetic neuropathy, unspecified; R29.6 Repeated falls; W18.30XA Fall on same level, unspecified, initial encounter; Z88.8 Allergy status to other drugs, medicaments and biological substances; Z91.048 Other nonmedicinal substance allergy status; Z79.84 Long term (current) use of oral hypoglycemic drugs; Z79.899 Other long term (current) drug therapy; Z79.891 Long term (current) use of opiate analgesic; Z79.82 Long term (current) use of aspirin; I25.2 Old myocardial infarction; Z87.19 Personal history of other diseases of the digestive system; Z89.021 Acquired absence of right finger(s); Z90.49 Acquired absence of other specified parts of digestive tract; Z98.890 Other specified postprocedural states; Z87.891 Personal history of nicotine dependence
CPT/HCPCS: 36415; 70250; 70450; 80053; 82947; 83735; 85025; 93005; 93010; 96360; 96361; 99285-25; A9270; G0378; J1815; J7030; J7120

== ENCOUNTER 2024-05-05 14:52 | Emergency (ER) | payer MEDICARE, BC ==
[~2024-05-05] VITALS: Ht 177.8 cm; Wt 79.4 kg
[~2024-05-05 14:52] MED LIST changes: +Oxybutynin Chlo10 MG PO; +SILDENAFIL CIT100 MG PO
[2024-05-05 15:26] LABS: BASOPHILS ABSOLUTE AUTO 0.06 K/mm3 (0.00-0.23); BASOPHILS PERCENT AUTO 1 % (0-2); EOSINOPHILS ABSOLUTE AUTO 0.17 K/mm3 (0.00-0.68); EOSINOPHILS PERCENT AUTO 1 % (0-6); Hematocrit 39.6 % (37.0-53.0); Hemoglobin 13.7 g/dL (13.5-17.5); IMMATURE GRAN ABSOLUTE AUTO 0.09 K/mm3 (0.00-0.10); IMMATURE GRAN PERCENT AUTO 1 % (0-1); LYMPHOCYTES ABSOLUTE AUTO 1.39 K/mm3 (0.84-5.20); LYMPHOCYTES PERCENT AUTO 12 % (21-46); MONOCYTES ABSOLUTE AUTO 1.24 K/mm3 (0.16-1.47); MONOCYTES PERCENT AUTO 11 % (4-13); Mean Corpuscular HGB 30.9 pg (26.0-34.0); Mean Corpuscular HGB Conc 34.6 g/dL (31.5-36.5); Mean Corpuscular Volume 89 fL (80-100); Mean Platelet Volume 10.9 fL (9.1-12.4); NEUTROPHILS ABSOLUTE AUTO 8.81 K/mm3 (1.96-9.15); NEUTROPHILS PERCENT AUTO 75 % (41-73); Platelet Count 289 K/mm3 (150-400); RDW Coefficient Variation 13.1 % (11.7-14.2); RDW Standard Deviation 42.9 fL (35.1-46.3); Red Blood Cell Count 4.43 M/mm3 (4.30-5.90); White Blood Cell Count 11.76 K/mm3 (4.00-11.30)
[2024-05-05 15:38] LABS: Albumin, Blood 3.2 g/dL (3.4-5.0); Bilirubin, Total 0.3 mg/dL (0.1-1.0); Bun/Creatinine Ratio 44.1 (12.0-20.0); Calcium, Blood 8.9 mg/dL (8.5-10.1); Creatinine, Blood 0.54 mg/dL (0.60-1.20); Globulin, Blood 3.2 g/dL (2.2-4.0); Potassium, Blood 4.2 mmol/L (3.5-5.5); Total Protein, Blood 6.4 g/dL (6.4-8.2)
[2024-05-05 16:05] LABS: Source, Urine Clean Catch
[2024-05-05 16:09] LABS: Appearance, Urine Clear (Clear); Bilirubin, Urine Neg (Neg); Blood, Urine Neg (Neg); Glucose Qualitative, Urine 4+ (Neg); Ketones, Urine Neg (Neg); Leukocyte Esterase, Urine Neg (Neg); Nitrite, Urine Neg (Neg); Protein, Urine Neg (Neg); Urobilinogen, Urine NORM (Normal); pH, Urine 6.5 (5.0-8.0)
[2024-05-05 16:23] LABS: Color, Urine Pale Yellow (P-Yellow)
[2024-05-05] MEDS ORDERED: Insulin Regular 100 Unit/ML 1ML Dose SC ONE (16:35)
[2024-05-05 19:30] VITALS: BP 127/59
== END 2024-05-05 19:45 | disposition short-term general hospital (02) ==
LOC: ER 14:52
PROVIDERS: Emergency Medicine
DX: I62.02 Nontraumatic subacute subdural hemorrhage (principal); E11.40 Type 2 diabetes mellitus with diabetic neuropathy, unspecified; Z87.891 Personal history of nicotine dependence; Z79.4 Long term (current) use of insulin; Z79.899 Other long term (current) drug therapy; Z79.84 Long term (current) use of oral hypoglycemic drugs; Z88.8 Allergy status to other drugs, medicaments and biological substances; Z91.048 Other nonmedicinal substance allergy status; G91.2 (Idiopathic) normal pressure hydrocephalus; Z98.2 Presence of cerebrospinal fluid drainage device; I67.82 Cerebral ischemia; Z98.49 Cataract extraction status, unspecified eye
CPT/HCPCS: 70450; 80053; 81003; 82947; 85025; 93005; 93010; 99285-25; J1815

== ENCOUNTER 2024-06-03 15:35 | Observation (INO) | payer MEDICARE, BC ==
[~2024-06-03] VITALS: Ht 177.8 cm; Wt 79.4 kg
[~2024-06-03 15:35] MED LIST changes: -DULO30 PO
[2024-06-03] MEDS ORDERED: NS 1,000 ML IV SCH (15:45)
[2024-06-03] MEDS ORDERED: levETIRAcetam 3,000 MG in NS 100 ML IV ONE (15:45)
[2024-06-03 15:49] LABS: BASOPHILS ABSOLUTE AUTO 0.04 K/mm3 (0.00-0.23); BASOPHILS PERCENT AUTO 1 % (0-2); EOSINOPHILS ABSOLUTE AUTO 0.25 K/mm3 (0.00-0.68); EOSINOPHILS PERCENT AUTO 5 % (0-6); Hematocrit 45.2 % (37.0-53.0); Hemoglobin 15.7 g/dL (13.5-17.5); IMMATURE GRAN ABSOLUTE AUTO 0.05 K/mm3 (0.00-0.10); IMMATURE GRAN PERCENT AUTO 1 % (0-1); LYMPHOCYTES ABSOLUTE AUTO 0.99 K/mm3 (0.84-5.20); LYMPHOCYTES PERCENT AUTO 18 % (21-46); MONOCYTES ABSOLUTE AUTO 0.82 K/mm3 (0.16-1.47); MONOCYTES PERCENT AUTO 15 % (4-13); Mean Corpuscular HGB 30.8 pg (26.0-34.0); Mean Corpuscular HGB Conc 34.7 g/dL (31.5-36.5); Mean Corpuscular Volume 89 fL (80-100); Mean Platelet Volume 10.3 fL (9.1-12.4); NEUTROPHILS ABSOLUTE AUTO 3.22 K/mm3 (1.96-9.15); NEUTROPHILS PERCENT AUTO 60 % (41-73); Platelet Count 257 K/mm3 (150-400); RDW Standard Deviation 42.4 fL (35.1-46.3); Red Blood Cell Count 5.09 M/mm3 (4.30-5.90); White Blood Cell Count 5.37 K/mm3 (4.00-11.30)
[2024-06-03 16:10] LABS: Albumin, Blood 3.3 g/dL (3.4-5.0); Albumin/Globulin Ratio 0.9 (0.8-1.8); Bilirubin, Total 0.2 mg/dL (0.1-1.0); Bun/Creatinine Ratio 28.6 (12.0-20.0); Calcium, Blood 9.7 mg/dL (8.5-10.1); Creatinine, Blood 0.56 mg/dL (0.60-1.20); Globulin, Blood 3.7 g/dL (2.2-4.0); Magnesium, Blood 2.4 mg/dL (1.6-2.4); Potassium, Blood 4.5 mmol/L (3.5-5.5)
[2024-06-03 16:25] LABS: International Normalized Ratio 0.96; Prothrombin Time Results 10.3 Sec (9.7-11.5)
[2024-06-03 16:35] LABS: Base Excess Venous -2.9 mmol/L; Bicarbonate Venous 22.7 mmol/L (24.0-30.0); PCO2 Venous 34.1 mmHg (38-42); pH Blood Venous 7.43 (7.34-7.37)
[2024-06-03 16:56] LABS: U Amphetamine Screen Not Detected; U Barbituate Screen Not Detected; U Benzodiazapine Screen Not Detected; U Buprenorphine Screen Not Detected; U Cannabinoids Screen Not Detected; U Cocaine Screen Not Detected; U Methadone Screen Not Detected; U Methamphetamine Screen Not Detected; U Opiates Screen Not Detected; U Oxycodone Screen Not Detected; U Phencyclidine Screen Not Detected
[2024-06-03 17:11] LABS: Influenza A, PCR NEGATIVE (NEGATIVE); Influenza B, PCR NEGATIVE (NEGATIVE); Resp Syncytial Virus, PCR NEGATIVE (NEGATIVE); SARS-Cov-2 (COVID-19) PCR, MMC NEGATIVE (NEGATIVE)
[2024-06-03] MEDS ORDERED: PREG100 PO (18:33)
[2024-06-03] MEDS ORDERED: METF500 PO (18:33)
[2024-06-03] MEDS ORDERED: PRAM.125 (18:33)
[2024-06-03] MEDS ORDERED: BASAGLAR K100 UNIT/8 (18:33)
[2024-06-03] MEDS ORDERED: ALBU90OI INH (18:33)
[2024-06-03] MEDS ORDERED: Keppra750 MG PO (18:34)
[2024-06-03] MEDS ORDERED: METO25ER PO (18:34)
[2024-06-03] MEDS ORDERED: FISH OIL 1,0001 EA10 PO (18:34)
[2024-06-03] MEDS ORDERED: LACO50TA2 PO (18:34)
[2024-06-03] MEDS ORDERED: OZEMPIC1 MG/0.72 (18:35)
[2024-06-03] MEDS ORDERED: TAMS.4ER PO (18:35)
[2024-06-03] MEDS ORDERED: NITR.4SL SL (18:35)
[2024-06-03] MEDS ORDERED: Acetaminophen 325 MG TABLET PO PRN (21:20)
[2024-06-03] MEDS ORDERED: Albuterol HFA200 ACT/6.7 GM INH INH PRN ×2 (21:25→22:00)
--- NOTE | 2024-06-03 22:28 | NUR ---
REPORT RECEIVED FROM ANUPAM (HOME ASSESSMENT NURSE) AND AWAITING PT T/F TO ROOM 363.
[2024-06-03 22:57] VITALS: BP 122/73
[2024-06-03] MEDS ORDERED: Insulin Glargine-Yfgn 100 Unit/mL 3 ML SYR SC SCH (23:00)
[2024-06-03] MEDS ORDERED: LORazepam 2 MG/ML 1ML Injection IV PRN (23:20)
[2024-06-04] MEDS ORDERED: Norco 10-325 T1 EACH PO (00:01)
[2024-06-04] MEDS ORDERED: HUMULIN 70100 UNIT/4 SC (00:02)
[2024-06-04] MEDS ORDERED: Oxybutynin Chlo10 MG PO (00:03)
[2024-06-04] MEDS ORDERED: Amoxicillin500 MG PO (00:06)
[2024-06-04 02:26] VITALS: BP 116/65
[2024-06-04 04:54] LABS: BASOPHILS ABSOLUTE AUTO 0.04 K/mm3 (0.00-0.23); BASOPHILS PERCENT AUTO 1 % (0-2); EOSINOPHILS ABSOLUTE AUTO 0.58 K/mm3 (0.00-0.68); EOSINOPHILS PERCENT AUTO 7 % (0-6); Hematocrit 44.3 % (37.0-53.0); Hemoglobin 15.1 g/dL (13.5-17.5); IMMATURE GRAN ABSOLUTE AUTO 0.05 K/mm3 (0.00-0.10); IMMATURE GRAN PERCENT AUTO 1 % (0-1); LYMPHOCYTES ABSOLUTE AUTO 0.64 K/mm3 (0.84-5.20); LYMPHOCYTES PERCENT AUTO 8 % (21-46); MONOCYTES ABSOLUTE AUTO 0.81 K/mm3 (0.16-1.47); MONOCYTES PERCENT AUTO 10 % (4-13); Mean Corpuscular HGB 30.9 pg (26.0-34.0); Mean Corpuscular HGB Conc 34.1 g/dL (31.5-36.5); Mean Corpuscular Volume 91 fL (80-100); Mean Platelet Volume 10.3 fL (9.1-12.4); NEUTROPHILS ABSOLUTE AUTO 5.83 K/mm3 (1.96-9.15); NEUTROPHILS PERCENT AUTO 73 % (41-73); Platelet Count 250 K/mm3 (150-400); RDW Coefficient Variation 13.3 % (11.7-14.2); RDW Standard Deviation 44.6 fL (35.1-46.3); Red Blood Cell Count 4.88 M/mm3 (4.30-5.90); White Blood Cell Count 7.95 K/mm3 (4.00-11.30)
[2024-06-04 05:22] LABS: Albumin, Blood 3.2 g/dL (3.4-5.0); Bilirubin, Total 0.4 mg/dL (0.1-1.0); Bun/Creatinine Ratio 26.8 (12.0-20.0); Calcium, Blood 9.1 mg/dL (8.5-10.1); Creatinine, Blood 0.6 mg/dL (0.60-1.20); Globulin, Blood 3.1 g/dL (2.2-4.0); Potassium, Blood 3.8 mmol/L (3.5-5.5); Total Protein, Blood 6.3 g/dL (6.4-8.2)
--- NOTE | 2024-06-04 05:44 | NUR ---
T/F AND SUMMARY: PT T/F TO ROOM 363 VIA GURNEY AT 2242. HE'S A/OX4, WAS ORIENTED TO ROOM AND CALL SYSTEM AND IS PLEASANT AND COOPERATIVE W/CARE. BED ALARM IS ARMED FOR FALL RISK R/T RECENT SEIZURES AND AMS THAT FOLLOWED. HE RECEIVED 3GM KEPPRA IN ER AND THERE'S BEEN NO S/S SEIZURE ACTIVITY SINCE ARRIVAL TO UNIT. EEG IS PLANNED FOR TODAY. PT HAD RECENT SUBDURAL HEMATOMA W/L.[place] HOLE CRANIOTOMY AND WAREHOUSE TEAM MEMBER SHUNT PLACEMENT. HEAD CT SHOWED NO ACUTE PROCESS AND APPEARANCE OF WAREHOUSE TEAM MEMBER SHUNT WAS UNREMARKABLE PER SHUNTOGRAM. NEURO OBS STABLE AND PERRL. POST BRAIN SX, PT REPORTS NEW USE OF CANE, R.CITY MAGISTRATE SLIGHTLY WEAKER AND SPEECH MILDLY DELAYED AND SLURRED AT PRESENT. HE'S DENIED PAIN, DEMPSEY, DIZZINESS, SYNCOPE AND ALL OTHER COMPLAINTS. SENSATION IS WNL. HE WAS COMMENCED ON TELE AND IS S.HEMAL AT 50'S BPM. PT IS USING URINAL AD CLARE AND IS UP W/1PA. NO ACUTE CHANGES, VSS/AFEBRILE. WCTM AND REPORT TO DAY RN.
[2024-06-04] MEDS ORDERED: Pantoprazole Sodium 40 MG Tab PO SCH (06:00)
[2024-06-04 07:08] VITALS: BP 113/63
[2024-06-04] MEDS ORDERED: Insulin Regular 100 UNIT/ML 10ML Vial SC SCH (07:30)
[2024-06-04] MEDS ORDERED: LevETIRAcetam 500 MG Tab PO SCH (09:00)
[2024-06-04] MEDS ORDERED: Diltiazem HCl 180 MG Cap.CD PO SCH (09:00)
[2024-06-04] MEDS ORDERED: Enoxaparin 40 MG/0.4 ML SYR SC SCH (09:00)
[2024-06-04] MEDS ORDERED: Tamsulosin HCl 0.4 MG Cap PO SCH (09:00)
[2024-06-04] MEDS ORDERED: Pregabalin 50 MG Capsule PO SCH (09:00)
[2024-06-04] MEDS ORDERED: DULoxetine HCL 30 MG Cap DR PO SCH (09:00)
[2024-06-04] MEDS ORDERED: Lacosamide 50 MG Tablet PO SCH (09:00)
[2024-06-04] MEDS ORDERED: Metoprolol Succinate 25 MG TABCR PO SCH (09:00)
[2024-06-04] MEDS ORDERED: Empagliflozin 25 MG TAB PO SCH (09:00)
[2024-06-04] MEDS ORDERED: PRAMIPEXOLE DI0.5 M1 PO (14:47)
[2024-06-04] MEDS ORDERED: METO25ER PO (14:48)
[2024-06-04] MEDS ORDERED: Metformin HCl750 MG PO (14:50)
[2024-06-04] MEDS ORDERED: JARDIANCE25 MG PO (14:54)
[2024-06-04] MEDS ORDERED: CYMBALTA30 M1 PO (14:55)
[2024-06-04] MEDS ORDERED: ATOR40TA PO (14:55)
[2024-06-04] MEDS ORDERED: DILT180 PO (14:56)
[2024-06-04] MEDS ORDERED: NOVOLIN 70100 UNIT/4 SC ×2 (15:02→15:04)
[2024-06-04] MEDS ORDERED: ASPI81CH PO (15:05)
[2024-06-04] MEDS ORDERED: WEGOVY0.5 MG/0.5 SC (15:05)
[2024-06-04 15:07] VITALS: BP 106/63
[2024-06-04] MEDS ORDERED: LISI5 PO (15:08)
[2024-06-04] MEDS ORDERED: STIOLTO RESPIMAT4 G1 INH (15:08)
[2024-06-04] MEDS ORDERED: Cyclobenzaprine5 MG PO (15:10)
[2024-06-04] MEDS ORDERED: ALBU90OI INH (15:11)
[2024-06-04] MEDS ORDERED: LANTUS SOL100 UNIT/1 SC (15:16)
--- NOTE | 2024-06-04 15:59 | NUR ---
SHIFT SUMMARY PT AWAKE RESTING QUIETLY AT START OF SHIFT. WOKE EASILY FOR CARE. PT THEN C/O DEMPSEY; TYLENOL GIVEN WITH GOOD EFFECT. PT ABLE TO WORK WITH THERAPY TODAY; 1P SBA USING FWW AND GB. DR GIMENEZ IN TO SEE PT. PT TO D/C TO HOME. PT'S HOTEL FRONT DESK AGENT IN TO VISIT EARLIER. PER PT'S , HOTEL FRONT DESK AGENT LIVES WITH THEM. MED REC UPDATED PER [facility] TODAY. D/C ORDERS PLACED. AND HOTEL FRONT DESK AGENT UPDATED.
[2024-06-04] MEDS ORDERED: NITR.4SL SL (16:56)
[2024-06-04] MEDS ORDERED: Fenofibrate, Micronized 134 MG Capsule PO SCH (21:00)
[2024-06-04] MEDS ORDERED: Pramipexole DI-HCL 0.25 MG Tab PO SCH (21:00)
[2024-06-04] MEDS ORDERED: Donepezil HCl 5 MG Tab PO SCH (21:00)
== END 2024-06-04 17:35 | disposition home health service (06) ==
LOC: ER 15:35 → MEDS 15:36
PROVIDERS: Family Medicine; Student in an Organized Health Care Education/Training Program; ADMIT Internal Medicine
DX: G40.909 Epilepsy, unspecified, not intractable, without status epilepticus (principal); E11.65 Type 2 diabetes mellitus with hyperglycemia; E11.40 Type 2 diabetes mellitus with diabetic neuropathy, unspecified; E87.1 Hypo-osmolality and hyponatremia; I25.10 Atherosclerotic heart disease of native coronary artery without angina pectoris; G25.81 Restless legs syndrome; K21.9 Gastro-esophageal reflux disease without esophagitis; I10 Essential (primary) hypertension; E11.43 Type 2 diabetes mellitus with diabetic autonomic (poly)neuropathy; K31.84 Gastroparesis; G47.33 Obstructive sleep apnea (adult) (pediatric); Z99.89 Dependence on other enabling machines and devices; Z98.2 Presence of cerebrospinal fluid drainage device; Z88.8 Allergy status to other drugs, medicaments and biological substances; Z79.899 Other long term (current) drug therapy; Z79.84 Long term (current) use of oral hypoglycemic drugs; Z66 Do not resuscitate; Z87.891 Personal history of nicotine dependence
CPT/HCPCS: 0241U; 36415; 70250; 70450; 71045; 74018; 80053; 82010; 82803; 82947; 83735; 85025; 85610; 85730; 93005; 93010; 96365; 96372; 97161; 97530; 99285-25; A9270; G0378; J1650; J1815; J1953; J7030

== ENCOUNTER 2024-06-11 19:44 | Inpatient (IN) | payer MEDICARE, BC ==
[~2024-06-11] VITALS: Ht 172.7 cm; Wt 72.6 kg
[~2024-06-11 19:44] MED LIST changes: +Amoxicillin500 MG PO; +BASAGLAR K100 UNIT/8; +CYMBALTA30 M1 PO; +Cyclobenzaprine5 MG PO; +FISH OIL 1,0001 EA10 PO; +HUMULIN 70100 UNIT/4 SC; +Keppra750 MG PO; +LACO50TA2 PO; +LANTUS SOL100 UNIT/1 SC; +METO25ER PO; +Metformin HCl750 MG PO; +NOVOLIN 70100 UNIT/4 SC; +OZEMPIC1 MG/0.72; +PRAM.125; +PRAMIPEXOLE DI0.5 M1 PO; +PREG100 PO; +STIOLTO RESPIMAT4 G1 INH; +WEGOVY0.5 MG/0.5 SC
[2024-06-11] MEDS ORDERED: NS 1,000 ML IV SCH ×2 (20:00→22:30)
[2024-06-11 20:14] LABS: BASOPHILS ABSOLUTE AUTO 0.02 K/mm3 (0.00-0.23); BASOPHILS PERCENT AUTO 0 % (0-2); EOSINOPHILS ABSOLUTE AUTO 0.02 K/mm3 (0.00-0.68); EOSINOPHILS PERCENT AUTO 0 % (0-6); Hematocrit 42.7 % (37.0-53.0); Hemoglobin 14.7 g/dL (13.5-17.5); IMMATURE GRAN ABSOLUTE AUTO 0.03 K/mm3 (0.00-0.10); IMMATURE GRAN PERCENT AUTO 0 % (0-1); LYMPHOCYTES ABSOLUTE AUTO 0.65 K/mm3 (0.84-5.20); LYMPHOCYTES PERCENT AUTO 5 % (21-46); MONOCYTES ABSOLUTE AUTO 0.95 K/mm3 (0.16-1.47); MONOCYTES PERCENT AUTO 7 % (4-13); Mean Corpuscular HGB 30.6 pg (26.0-34.0); Mean Corpuscular HGB Conc 34.4 g/dL (31.5-36.5); Mean Corpuscular Volume 89 fL (80-100); Mean Platelet Volume 10.4 fL (9.1-12.4); NEUTROPHILS PERCENT AUTO 87 % (41-73); Platelet Count 326 K/mm3 (150-400); RDW Coefficient Variation 12.7 % (11.7-14.2); RDW Standard Deviation 41.7 fL (35.1-46.3); White Blood Cell Count 12.77 K/mm3 (4.00-11.30)
[2024-06-11 20:47] LABS: Alanine Aminotransfer (ALT/SGP 23 U/L (12-78); Alk Phos 102 U/L (50-136); Anion Gap 14 mmol/L (3-11); Aspartate Aminotrans (AST/SGOT 17 U/L (12-37); Bilirubin, Total 0.7 mg/dL (0.1-1.0); Blood Urea Nitrogen 24 mg/dL (8-24); Bun/Creatinine Ratio 20.3 (12.0-20.0); CO2, Blood 22 mmol/L (21-32); Calcium, Blood 8.7 mg/dL (8.5-10.1); Chloride, Blood 103 mmol/L (98-108); Creatinine, Blood 1.18 mg/dL (0.60-1.20); Ethanol (Alcohol), Blood, Med <3 mg/dL; Glomerular Filtration Rate 63 (60-); Glucose, Blood 345 mg/dL (70-99); Magnesium, Blood 2.3 mg/dL (1.6-2.4); Potassium, Blood 4.6 mmol/L (3.5-5.5); Sodium, Blood 134 mmol/L (136-145); Thyroid Stimulating Hormone 0.194 uIU/mL (0.360-4.800)
[2024-06-11 20:59] LABS: PCO2 Venous 40.7 mmHg (38-42); pH Blood Venous 7.39 (7.34-7.37)
[2024-06-11 21:00] LABS: Base Excess Venous -0.5 mmol/L; Bicarbonate Venous 23.8 mmol/L (24.0-30.0)
[2024-06-11 21:38] LABS: Influenza A, PCR NEGATIVE (NEGATIVE); Influenza B, PCR NEGATIVE (NEGATIVE); Resp Syncytial Virus, PCR NEGATIVE (NEGATIVE); SARS-Cov-2 (COVID-19) PCR, MMC NEGATIVE (NEGATIVE)
[2024-06-11 22:35] LABS: Source, Urine Clean Catch
[2024-06-11 22:47] LABS: Bilirubin, Urine Neg (Neg); Blood, Urine Neg (Neg); Glucose Qualitative, Urine 4+ (Neg); Ketones, Urine Neg (Neg); Leukocyte Esterase, Urine Neg (Neg); Nitrite, Urine Neg (Neg); Protein, Urine Neg (Neg); Urobilinogen, Urine NORM (Normal)
[2024-06-11 22:52] LABS: Appearance, Urine Clear (Clear); Color, Urine Pale Yellow (P-Yellow)
[2024-06-11 22:58] LABS: U Amphetamine Screen Not Detected; U Barbituate Screen Not Detected; U Benzodiazapine Screen Not Detected; U Cocaine Screen Not Detected; U Methamphetamine Screen Not Detected
[2024-06-11 22:59] LABS: U Buprenorphine Screen Not Detected; U Cannabinoids Screen Not Detected; U Methadone Screen Not Detected; U Opiates Screen Not Detected; U Oxycodone Screen Not Detected; U Phencyclidine Screen Not Detected
[2024-06-11] MEDS ORDERED: CefTRIAXone Sodium 1,000 MG in NS 50 ML IV ONE (23:10)
[2024-06-11] MEDS ORDERED: Azithromycin 500 MG in NS 250 ML IV ONE (23:10)
[2024-06-12] MEDS ORDERED: NS 1,000 ML IV SCH (01:40)
[2024-06-12 04:12] VITALS: BP 124/68
[2024-06-12] MEDS ORDERED: levETIRAcetam 1,500 MG in NS 100 ML IV SCH (05:00)
[2024-06-12] MEDS ORDERED: Insulin Regular 100 UNIT/ML 10ML Vial SC SCH ×2 (06:00→11:30)
[2024-06-12 07:37] VITALS: BP 115/66
[2024-06-12] MEDS ORDERED: Acetaminophen 325 MG TABLET PO PRN (07:50)
[2024-06-12] MEDS ORDERED: Nitroglycerin 0.4 MG SUBL SL PRN (07:55)
[2024-06-12] MEDS ORDERED: Albuterol HFA200 ACT/6.7 GM INH INH PRN (08:05)
[2024-06-12] MEDS ORDERED: Trospium Chloride 20 MG Tab PO SCH (08:30)
[2024-06-12] MEDS ORDERED: Lactobacil 2-S.Thermo-Bifido 1 1 Cap PO SCH (09:00)
[2024-06-12] MEDS ORDERED: LevETIRAcetam 500 MG Tab PO SCH (09:00)
[2024-06-12] MEDS ORDERED: Atorvastatin 40 MG Tab PO SCH (09:00)
[2024-06-12] MEDS ORDERED: Omega-3 Acid Ethyl Esters 1,000 MG CAP PO SCH (09:00)
[2024-06-12] MEDS ORDERED: Tamsulosin HCl 0.4 MG Cap PO SCH (09:00)
[2024-06-12] MEDS ORDERED: [UNRECOGNIZED DRUG - OTHER] INH SCH (09:00)
[2024-06-12] MEDS ORDERED: Empagliflozin 25 MG TAB PO SCH (09:00)
[2024-06-12] MEDS ORDERED: Aspirin 81 MG Chew PO SCH (09:00)
[2024-06-12] MEDS ORDERED: DULoxetine HCL 30 MG Cap DR PO SCH (09:00)
[2024-06-12] MEDS ORDERED: Enoxaparin 40 MG/0.4 ML SYR SC SCH (09:00)
[2024-06-12] MEDS ORDERED: Pregabalin 50 MG Capsule PO SCH (09:00)
[2024-06-12] MEDS ORDERED: Lacosamide 50 MG Tablet PO SCH (09:00)
[2024-06-12] MEDS ORDERED: Insulin Isoph 70 / Reg 30 100 Unit/ML 10ML Vial SC SCH ×2 (11:00→16:00)
[2024-06-12 15:06] VITALS: BP 129/65
[2024-06-12] MEDS ORDERED: Pantoprazole Sodium 40 MG Tab PO SCH (16:30)
--- NOTE | 2024-06-12 18:56 | NUR ---
SHIFT SUMMARY; PATIENT CONFUSED THROUGHOUT DAY SHIFT. PULLED OF CONDOM CATHETER AND THEN REMOVED MALE PUREWICK X 2. PATIENT IS REDIRECTABLE HOWEVER HAS VERY SHORT TERM MEMORY NOTED. NO FAMILY IN TO VISIT PATIENT DURING DAY SHIFT. PATIENT HAS DIMINISHED LUNG SOUNDS WITH AUDIBLE WHEEZE TO UPPER LEFT LOBE. NO SKIN ISSUES NOTED. HE TAKES HIS PILLS WHOLE WITH WATER WITHOUT DIFFICULTY. VITAL SIGNS ARE STABLE. HE HAS HEALTHY APPETITE AND FEEDS HIMSELF WITHOUT DIFFICULTY. HIS CHEM BG REQUIRE COVERAGE X 1 TODAY.
[2024-06-12 19:54] VITALS: BP 119/56
[2024-06-12] MEDS ORDERED: Donepezil HCl 5 MG Tab PO SCH (21:00)
[2024-06-12] MEDS ORDERED: CefTRIAXone Sodium 1,000 MG in NS 100 ML IV SCH (21:00)
[2024-06-12] MEDS ORDERED: Fenofibrate, Micronized 134 MG Capsule PO SCH (21:00)
[2024-06-12] MEDS ORDERED: Azithromycin 500 MG in NS 250 ML IV SCH (21:00)
[2024-06-12] MEDS ORDERED: Pramipexole DI-HCL 0.25 MG Tab PO SCH (21:00)
[2024-06-13 03:49] VITALS: BP 121/59
[2024-06-13 07:26] VITALS: BP 122/67
--- NOTE | 2024-06-13 10:41 | NUR ---
ALERT AND ORIENTED, CLEARLY MAKES NEEDS KNOWN, WORKED WITH PT THIS AM, PLEASANT TO CARE, CALL LIGHT WITH IN REACH
[2024-06-13 15:18] VITALS: BP 137/71
--- NOTE | 2024-06-13 17:45 | NUR ---
NO ACUTE CHANGES, CLEARLY MAKES NEEDS KNOWN, PLEASANT TO CARE, CALL LIGHT WITH IN REACH, PROBABLE DISCAHRGE IN NEXT TWO DAYS, AND [id number] DID NOT VISIT TODAY, 3L O2 VIA NC, DIM LUNG SOUNDS, WILL RLEAY TO PM RN
[2024-06-13 19:11] VITALS: BP 124/73
[2024-06-13] MEDS ORDERED: NS 100 ML IV ONE (19:24)
[2024-06-13] MEDS ORDERED: CefTRIAXone 1000 MG Vial ONE (19:24)
[2024-06-13] MEDS ORDERED: NS 250 ML IV PRN (20:50)
[2024-06-13] MEDS ORDERED: NS 250 ML IV ONE (20:51)
[2024-06-13] MEDS ORDERED: Azithromycin 500 MG VIAL ONE (20:51)
--- NOTE | 2024-06-14 04:04 | NUR ---
SHIFT SUMMARY PATIENT HAD NO ACUTE CHANGES. AXOX 3 AND SLOW TO RESPOND. ONE ASSIST W/FWW TO BSC. ON 3L O2 NC. PIV INTACT. IV ABXS INFUSED. DENIES CHEST PAIN, SOB, AND N/V. VSS/AFEBRILE. CALL LIGHT IN REACH. BED IN LOWEST POSITION. WILL CONTINUE TO MONITOR UNTIL DAY SHIFT NURSE ASSUMES CARE.
[2024-06-14 04:39] VITALS: BP 133/76
[2024-06-14 07:25] VITALS: BP 125/79
[2024-06-14] MEDS ORDERED: AMOCLA875 PO (09:13)
[2024-06-14] MEDS ORDERED: VISBIOME 112.51 EACH PO (09:13)
--- NOTE | 2024-06-14 11:05 | NUR ---
PARTIENT AMBULATED IN HALLS WITH OT AND RT, PATIENT DOES NOT NEED HOME OXYGEN. CONTACTED [facility] PATIENTS CAREGIVER, RIDE AVAILABLE TO BE HERE AT 0530 PM
[2024-06-14 15:49] VITALS: BP 122/70
--- NOTE | 2024-06-14 17:06 | NUR ---
NO ACUTE CHANGES, RIDE FOR DISCHARGE TO BE HERE AT 1730, PATIENT WAITING AND READY TO GO HOME, PLEASANT TO CARE, REFUSED INSULIN COVERAGE AND REPORTED HE WILL TAKE CARE OF IT WHEN HE GETS HOME, CALL LIGHT WITH IN REACH, WAITING FOR TRANSPORTATION
== END 2024-06-14 17:49 | disposition home health service (06) | DRG 871 ==
LOC: ER 19:44 → MEDS 19:45 → ERHOLD 19:45 → MEDS 06-12 04:00 → ERHOLD 06-12 14:15 → MEDS 06-12 14:15
PROVIDERS: Student in an Organized Health Care Education/Training Program; ADMIT Family Medicine
DX: A41.9 Sepsis, unspecified organism (principal); J18.9 Pneumonia, unspecified organism; J96.01 Acute respiratory failure with hypoxia; E87.1 Hypo-osmolality and hyponatremia; F03.90 Unspecified dementia, unspecified severity, without behavioral disturbance, psychotic disturbance, mood disturbance, and anxiety; Z66 Do not resuscitate; E11.65 Type 2 diabetes mellitus with hyperglycemia; R65.20 Severe sepsis without septic shock; I25.2 Old myocardial infarction; E11.40 Type 2 diabetes mellitus with diabetic neuropathy, unspecified; H91.90 Unspecified hearing loss, unspecified ear; R56.9 Unspecified convulsions; Z87.891 Personal history of nicotine dependence; Z87.19 Personal history of other diseases of the digestive system; G47.33 Obstructive sleep apnea (adult) (pediatric); G25.81 Restless legs syndrome; Z89.021 Acquired absence of right finger(s); Z90.49 Acquired absence of other specified parts of digestive tract; Z98.890 Other specified postprocedural states; Z88.8 Allergy status to other drugs, medicaments and biological substances; Z91.048 Other nonmedicinal substance allergy status; Z79.82 Long term (current) use of aspirin; Z79.891 Long term (current) use of opiate analgesic; Z79.4 Long term (current) use of insulin; Z79.899 Other long term (current) drug therapy
CPT/HCPCS: 0241U; 36415; 70250; 70450; 71045; 71046; 74018; 80053; 80320; 81003; 82803; 82947; 83605; 83735; 83880; 84145; 84439; 84443; 84484; 85025; 87040; 93005; 93010; 94760; 94761; 96361; 96365; 96366; 96367; 96372; 96375; 97110; 97161; 97530; 99285-25; A9270; G0378; J0456; J0696; J1650; J1815; J1953; J7030; J7050

== ENCOUNTER 2024-08-09 01:17 | Emergency (ER) | payer OTHER, MEDICARE, BC ==
[~2024-08-09] VITALS: Ht 172.7 cm; Wt 72.6 kg
[~2024-08-09 01:17] MED LIST changes: +VISBIOME 112.51 EACH PO
[2024-08-09 01:38] LABS: BASOPHILS ABSOLUTE AUTO 0.05 K/mm3 (0.00-0.23); BASOPHILS PERCENT AUTO 1 % (0-2); EOSINOPHILS ABSOLUTE AUTO 0.32 K/mm3 (0.00-0.68); EOSINOPHILS PERCENT AUTO 5 % (0-6); Hematocrit 46.1 % (37.0-53.0); IMMATURE GRAN ABSOLUTE AUTO 0.04 K/mm3 (0.00-0.10); IMMATURE GRAN PERCENT AUTO 1 % (0-1); LYMPHOCYTES ABSOLUTE AUTO 2.14 K/mm3 (0.84-5.20); LYMPHOCYTES PERCENT AUTO 33 % (21-46); MONOCYTES PERCENT AUTO 14 % (4-13); Mean Corpuscular HGB 29.7 pg (26.0-34.0); Mean Corpuscular HGB Conc 34.7 g/dL (31.5-36.5); Mean Corpuscular Volume 86 fL (80-100); NEUTROPHILS ABSOLUTE AUTO 3.11 K/mm3 (1.96-9.15); NEUTROPHILS PERCENT AUTO 47 % (41-73); Platelet Count 233 K/mm3 (150-400); RDW Coefficient Variation 12.6 % (11.7-14.2); RDW Standard Deviation 39.3 fL (35.1-46.3); Red Blood Cell Count 5.38 M/mm3 (4.30-5.90); White Blood Cell Count 6.56 K/mm3 (4.00-11.30)
[2024-08-09 01:59] LABS: Albumin, Blood 3.5 g/dL (3.4-5.0); Albumin/Globulin Ratio 1.1 (0.8-1.8); Bilirubin, Total 0.4 mg/dL (0.1-1.0); Bun/Creatinine Ratio 27.2 (12.0-20.0); Calcium, Blood 9.7 mg/dL (8.5-10.1); Creatinine, Blood 0.7 mg/dL (0.60-1.20); Globulin, Blood 3.1 g/dL (2.2-4.0); Potassium, Blood 3.9 mmol/L (3.5-5.5); Total Protein, Blood 6.6 g/dL (6.4-8.2)
[2024-08-09 05:30] VITALS: BP 112/76
[2024-08-09 06:00] LABS: International Normalized Ratio 0.97; Prothrombin Time Results 10.4 Sec (9.7-11.5)
== END 2024-08-09 06:34 | disposition home or self-care (01) ==
LOC: ER 01:17
PROVIDERS: Emergency Medicine
DX: S06.5X9A Traumatic subdural hemorrhage with loss of consciousness of unspecified duration, initial encounter (principal); S22.31XA Fracture of one rib, right side, initial encounter for closed fracture; S00.81XA Abrasion of other part of head, initial encounter; E11.40 Type 2 diabetes mellitus with diabetic neuropathy, unspecified; I10 Essential (primary) hypertension; J44.89 Other specified chronic obstructive pulmonary disease; K21.9 Gastro-esophageal reflux disease without esophagitis; E78.00 Pure hypercholesterolemia, unspecified; G47.33 Obstructive sleep apnea (adult) (pediatric); W01.0XXA Fall on same level from slipping, tripping and stumbling without subsequent striking against object, initial encounter; Z87.891 Personal history of nicotine dependence; Z79.82 Long term (current) use of aspirin; Z79.4 Long term (current) use of insulin; Z91.048 Other nonmedicinal substance allergy status; Z88.8 Allergy status to other drugs, medicaments and biological substances
CPT/HCPCS: 70450; 71101; 72125; 80053; 85025; 85610; 85730; 93005; 93010; 99285-25

== ENCOUNTER → 2024-09-21 | Outpatient (CLI) | payer MEDICARE, BC ==
[2024-09-21 17:35] LABS: Appearance, Urine Clear (Clear); Bilirubin, Urine Neg (Neg); Blood, Urine Neg (Neg); Color, Urine Yellow (P-Yellow); Glucose Qualitative, Urine 4+ (Neg); Ketones, Urine Neg (Neg); Leukocyte Esterase, Urine Neg (Neg); Nitrite, Urine Neg (Neg); Protein, Urine Neg (Neg); Urobilinogen, Urine NORM (Normal)
== END | disposition home or self-care (01) ==
LOC: LAB 17:23 → LAB SHORT 17:23
PROVIDERS: Internal Medicine
DX: N39.0 Urinary tract infection, site not specified (principal)
CPT/HCPCS: 81003; 87086

== ENCOUNTER 2024-10-22 03:53 | Inpatient (IN) | payer MEDICARE, BC ==
[~2024-10-22] VITALS: Ht 172.7 cm; Wt 72.6 kg
[2024-10-22] MEDS ORDERED: FentaNYL Citrate 50 MCG/ML 2 ML Injection IV PRN (05:00)
[2024-10-22] MEDS ORDERED: NS 1,000 ML IV SCH ×2 (05:10→11:00)
[2024-10-22 05:19] LABS: BASOPHILS ABSOLUTE AUTO 0.06 K/mm3 (0.00-0.23); BASOPHILS PERCENT AUTO 1 % (0-2); EOSINOPHILS ABSOLUTE AUTO 0.15 K/mm3 (0.00-0.68); EOSINOPHILS PERCENT AUTO 2 % (0-6); Hemoglobin 15.5 g/dL (13.5-17.5); IMMATURE GRAN ABSOLUTE AUTO 0.13 K/mm3 (0.00-0.10); IMMATURE GRAN PERCENT AUTO 2 % (0-1); LYMPHOCYTES ABSOLUTE AUTO 1.35 K/mm3 (0.84-5.20); LYMPHOCYTES PERCENT AUTO 17 % (21-46); MONOCYTES ABSOLUTE AUTO 0.77 K/mm3 (0.16-1.47); MONOCYTES PERCENT AUTO 10 % (4-13); Mean Corpuscular HGB 31.1 pg (26.0-34.0); Mean Corpuscular HGB Conc 35.2 g/dL (31.5-36.5); Mean Corpuscular Volume 88 fL (80-100); Mean Platelet Volume 10.1 fL (9.1-12.4); NEUTROPHILS ABSOLUTE AUTO 5.44 K/mm3 (1.96-9.15); NEUTROPHILS PERCENT AUTO 69 % (41-73); Platelet Count 266 K/mm3 (150-400); RDW Coefficient Variation 13.4 % (11.7-14.2); RDW Standard Deviation 43.2 fL (35.1-46.3); Red Blood Cell Count 4.98 M/mm3 (4.30-5.90)
[2024-10-22 05:48] LABS: Bilirubin, Total 0.6 mg/dL (0.1-1.0); Bun/Creatinine Ratio 24.4 (12.0-20.0); Calcium, Blood 8.8 mg/dL (8.5-10.1); Creatinine, Blood 0.61 mg/dL (0.60-1.20); Globulin, Blood 2.9 g/dL (2.2-4.0); Potassium, Blood 4.2 mmol/L (3.5-5.5); Total Protein, Blood 5.9 g/dL (6.4-8.2)
[2024-10-22 07:58] LABS: Source, Urine Clean Catch
[2024-10-22 08:16] LABS: Bilirubin, Urine Neg (Neg); Blood, Urine Neg (Neg); Glucose Qualitative, Urine 4+ (Neg); Ketones, Urine Neg (Neg); Leukocyte Esterase, Urine Neg (Neg); Nitrite, Urine Neg (Neg); Protein, Urine Neg (Neg); Urobilinogen, Urine NORM (Normal)
[2024-10-22 08:19] LABS: Appearance, Urine Clear (Clear); Color, Urine Yellow (P-Yellow)
[2024-10-22] MEDS ORDERED: Ondansetron HCl 2 MG / ML 2ML Vial IV PRN (10:05)
[2024-10-22] MEDS ORDERED: FLU VACC TS2024-25(6MOS UP)/PF 45 MCG/0.5 ML SYRINGE IM SCH (10:05)
[2024-10-22 15:56] VITALS: BP 125/66
--- NOTE | 2024-10-22 16:13 | NUR ---
PT ARRIVED TO ROOM AOX3 AND COOPERATIVE OF CARE. PT IS FOLLOWING DIRECTIONS AND WAS ABLE TO SELF TRANSFER TO BED. PT WILL REMAIN A 1 PERSON TRANSFER HE HAD POSITIVE ORTHOS DOWN IN ER. CALL LIGHT IS WITHIN REACH AND BED ALARM HAS BEEN PLACED. WILL CONTINUE TO MONITOR.
[2024-10-22] MEDS ORDERED: Insulin Human Lispro 100 Units/ML 3ML Syringe SC SCH (16:30)
[2024-10-22] MEDS ORDERED: GLUCOSE4 GM PO (16:47)
[2024-10-22] MEDS ORDERED: INSULANI SC (16:56)
[2024-10-22] MEDS ORDERED: Mirapex0.5 MG PO (17:32)
[2024-10-22] MEDS ORDERED: PREG100 PO (17:33)
[2024-10-22 20:37] VITALS: BP 127/73
[2024-10-22] MEDS ORDERED: ALBU90OI INH (20:44)
[2024-10-22] MEDS ORDERED: DONEPEZIL HCL10 MG PO (20:45)
[2024-10-22] MEDS ORDERED: CYMBALTA30 M1 PO (20:45)
[2024-10-22] MEDS ORDERED: NOVOLIN 70100 UNIT/4 SC ×2 (20:47→20:48)
[2024-10-22] MEDS ORDERED: LACOSAMIDE150 MG PO (20:48)
[2024-10-22] MEDS ORDERED: LANS15EC PO (20:49)
[2024-10-22] MEDS ORDERED: ELEPSIA XR1500 MG PO (20:50)
[2024-10-22] MEDS ORDERED: NITR.4SL SL (20:50)
[2024-10-22] MEDS ORDERED: STIOLTO RESPIMAT4 G1 INH (20:53)
[2024-10-22] MEDS ORDERED: Heparin Sodium 5000 Units/ML 1ML MDV SC SCH (21:00)
[2024-10-23 02:01] VITALS: BP 152/95
--- NOTE | 2024-10-23 04:26 | NUR ---
SHIFT SUMMARY: PT AOX4 ANSWERS QUESTIONS APPROPRIATELY BUT CAN BE SLIGHTLY CONFUSED AND FORGETFUL. ORIENTED TO ABILITIE AND CALLS APPROPRIATELY. SLEPT FOR A DECENT AMMOUNT OF THE EVENING, AROUND 0230 COMPLAINED OF SOME NAUSEA AND NEEDING TO USE THE RESTROOM. SAT UP AND ALLOWED FEET TO DANGLE AND WAS A ONE PERSON ASSIST TO THE BATHROOM. PT ATTEMPTED TO HAVE A BM AND COMPLAINED OF CONSTIPATION. SAYS ITS BEEN A FEW DAYS SINCE LAST FULL BM. AFTER ~ 30 MIN OF TRYING PT BROUGHT BACK TO BED AND GIVEN SOME PRUNE JUICE. LAYING ON SIDE CURRENTLY ATTEMPTING GET BOWELS TO MOVE. PT IS NOT DISTENDED AND DENIES ABD TENDERNESS. JUST DISCOMFORT. RESTING IN BED CURRENTLY, BED IN LOWEST POSITION, CALL LIGHT IN REACH. CONTINUING CARE.
--- NOTE | 2024-10-23 06:44 | NUR ---
NURSING NOTE: PT COMPLAINED OF CONSTIPATION ATTEMPTED BM A SECOND TIME. NO BM. COMPLAINED OF NOT BEING ABLE TO VOID. ABDOMEN DISTENDED AND TENDER. BLADDER SCAN SHOWED 1590 PROVIDER CALLED AND STRAIGHT CATH ORDERD. 1700 ML OUTPUT AND 200 RESIDUAL. PT TOLERATED IT WELL.
[2024-10-23 07:45] VITALS: BP 132/73
[2024-10-23 07:47] VITALS: BP 143/77
[2024-10-23 07:48] VITALS: BP 124/70
[2024-10-23] MEDS ORDERED: Enoxaparin 40 MG/0.4 ML SYR SC SCH (09:00)
[2024-10-23] MEDS ORDERED: Polyethylene Glycol 3350 17 gm PO SCH (09:00)
[2024-10-23] MEDS ORDERED: Cholecalciferol 1000 Unit Tablet (=25MCG) PO SCH (09:00)
[2024-10-23] MEDS ORDERED: Bisacodyl 10 MG Supp PR ONE (10:45)
[2024-10-23 14:03] VITALS: BP 144/66
--- NOTE | 2024-10-23 16:11 | NUR ---
PT IS AOX3 AND COOPERATIVE OF CARE.PT IS A 1 PERSON WITH WALKER TO RESTROOM. PT ABLE TO MAKE NEEDS KNOWN AND CALLS APPROPRIATELY. PT HAS BEEN RETAINING URINE AND IS CONSTIPATED. PT NEEDED STRAIGHT CATHED AND WAS GIVEN A SUPPOSITORY. ONLY SMALL BM AT THIS TIME WILL CONTINUE TO MONITOR. NOT VOIDING ON HIS OWN AT THIS TIME.
[2024-10-23 19:22] VITALS: BP 141/73
[2024-10-23] MEDS ORDERED: Tamsulosin HCl 0.4 MG Cap PO SCH (21:00)
[2024-10-23] MEDS ORDERED: Docusate Sodium/Senna 1 Tab PO SCH (21:00)
[2024-10-24 02:04] VITALS: BP 121/71
--- NOTE | 2024-10-24 04:17 | NUR ---
SHIFT SUMMARY PATIENT HAD NO ACUTE CHANGES. AXOX 3 AND ONE ASSIST W/FWW TO BR. BLADDER SCAN 353 mL. PIV INTACT. TELE MONITOR NSR 70. CBG 154. DENIES CHEST PAIN, SOB, AND N/V. CALL LIGHT IN REACH. BED IN LOWEST POSITION. WILL CONTINUE TO MONITOR UNTIL DAY SHIFT NURSE ASSUMES CARE.
[2024-10-24 05:20] LABS: Hematocrit 42.6 % (37.0-53.0); Hemoglobin 15.1 g/dL (13.5-17.5); Mean Corpuscular HGB 31.3 pg (26.0-34.0); Mean Corpuscular HGB Conc 35.4 g/dL (31.5-36.5); Mean Corpuscular Volume 88 fL (80-100); Mean Platelet Volume 10.7 fL (9.1-12.4); Platelet Count 292 K/mm3 (150-400); RDW Coefficient Variation 13.8 % (11.7-14.2); RDW Standard Deviation 44.6 fL (35.1-46.3); Red Blood Cell Count 4.82 M/mm3 (4.30-5.90); White Blood Cell Count 9.65 K/mm3 (4.00-11.30)
[2024-10-24 05:35] LABS: Anion Gap 11 mmol/L (3-11); Blood Urea Nitrogen 10 mg/dL (8-24); Bun/Creatinine Ratio 18.8 (12.0-20.0); CO2, Blood 23 mmol/L (21-32); Chloride, Blood 108 mmol/L (98-108); Creatinine, Blood 0.53 mg/dL (0.60-1.20); Glomerular Filtration Rate 103 (60-); Glucose, Blood 136 mg/dL (70-99); Phosphorus, Blood 2.8 mg/dL (2.5-4.9); Potassium, Blood 3.9 mmol/L (3.5-5.5); Sodium, Blood 138 mmol/L (136-145)
[2024-10-24 08:20] VITALS: BP 124/81
[2024-10-24] MEDS ORDERED: Bisacodyl 5 MG TabEC PO PRN (12:00)
[2024-10-24 16:03] VITALS: BP 150/70
--- NOTE | 2024-10-24 19:38 | NUR ---
SHIFT SUMMARY PATIENT ALERT AND INTERACTIVE. PATIENT ABLE TO AMBULATE WITH ASSISTANCE AND WALKER TO BR. PATIENT VOIDING FREQUENTLY LARGE AMOUNTS OF URINE AND HAD ANOTHER LARGE STOOL. PATIENT VERBALIZING EPIGASTRIC BURNING AND REFLUX THIS AFTERNOON. PATIENT MEDICATED WITH ZOFRAN AND HEAD OF BED ELEVATED. REFLUX RESOLVED. PATIENT STATES HE IS FEELING MUCH BETTER THIS AFTERNOON.
[2024-10-24 19:59] VITALS: BP 142/81
[2024-10-25 02:19] VITALS: BP 135/81
--- NOTE | 2024-10-25 03:57 | NUR ---
SHIFT SUMMARY 79 YR M ADMITTED ON 10/22/24. DNR. NO ACUTE CHANGES THIS SHIFT. PT HAD ANOTHER LARGE BM THIS SHIFT AND IS VOIDING FREQUENTLY. HE IS A&O AND CALLS APPROPRIATELY FOR ASSISTANCE TO BATHROOM. NO C/O PAIN OR DISCOMFORT THIS SHIFT. PT IS FRIENDLY AND COOPERATIVE WITH CAR. BED IN LOW POSITION AND CALL LIGHT IN REACH.
[2024-10-25 07:24] VITALS: BP 131/82
[2024-10-25] MEDS ORDERED: Ipratropium/Albuterol SulF 2.5-0.5MG/3 ML Amp INH SCH (11:50)
[2024-10-25 15:30] VITALS: BP 132/80
[2024-10-25] MEDS ORDERED: SENN187 PO (15:38)
[2024-10-25] MEDS ORDERED: FT SENNA-S 8.61 EACH PO (16:06)
[2024-10-25] MEDS ORDERED: Insulin Isoph 70 / Reg 30 100 Unit/ML 10ML Vial SC SCH (16:30)
--- NOTE | 2024-10-25 16:41 | NUR ---
DISCHARGE NOTE. PATIENT AND FAMILY EDUCATED ON DISCHARGE INSTRUCTIONS/PACKET AND NEW PRESCRIPTION. RESOURCES PROVIDED FROM [employer] RELATED TO FOOD INSECURITY. TWO BAGS OF FOOD PROVIDED TO PATIENT. IV WAS REMOVED, ESCORTED DOWN VIA WHEELCHAIR BY SAND AND GRAVEL PLANT OPERATOR. NO NEW QUESTIONS OR CONCERNS UPON DISCHARGE.
[2024-10-25] MEDS ORDERED: Pramipexole DI-HCL 0.25 MG Tab PO SCH (21:00)
[2024-10-25] MEDS ORDERED: Pregabalin 50 MG Capsule PO SCH (21:00)
[2024-10-25] MEDS ORDERED: Lacosamide 50 MG Tablet PO SCH (21:00)
[2024-10-25] MEDS ORDERED: LevETIRAcetam 500 MG Tab PO SCH (21:00)
[2024-10-26] MEDS ORDERED: Empagliflozin 25 MG TAB PO SCH (09:00)
[2024-10-26] MEDS ORDERED: DULoxetine HCL 30 MG Cap DR PO SCH (09:00)
== END 2024-10-25 16:40 | disposition home health service (06) | DRG 312 ==
LOC: ER 03:53 → ERHOLD 10:02 → ER 10:02 → MEDS 10:02 → ERHOLD 15:45 → MEDS 15:45 → ERHOLD 10-23 15:00 → MEDS 10-23 15:00
PROVIDERS: Emergency Medicine; Internal Medicine; ADMIT Internal Medicine
DX: I95.1 Orthostatic hypotension (principal); R33.9 Retention of urine, unspecified; K59.00 Constipation, unspecified; Z66 Do not resuscitate; F03.90 Unspecified dementia, unspecified severity, without behavioral disturbance, psychotic disturbance, mood disturbance, and anxiety; R56.9 Unspecified convulsions; Z88.8 Allergy status to other drugs, medicaments and biological substances; Z91.048 Other nonmedicinal substance allergy status; I25.2 Old myocardial infarction; H91.90 Unspecified hearing loss, unspecified ear; Z87.19 Personal history of other diseases of the digestive system; G47.33 Obstructive sleep apnea (adult) (pediatric); E86.0 Dehydration; E11.40 Type 2 diabetes mellitus with diabetic neuropathy, unspecified; G25.81 Restless legs syndrome; E78.00 Pure hypercholesterolemia, unspecified; K21.9 Gastro-esophageal reflux disease without esophagitis; J45.909 Unspecified asthma, uncomplicated; Z86.711 Personal history of pulmonary embolism; Z89.021 Acquired absence of right finger(s); Z90.49 Acquired absence of other specified parts of digestive tract; Z98.890 Other specified postprocedural states; Z86.79 Personal history of other diseases of the circulatory system; Z87.891 Personal history of nicotine dependence; Z79.4 Long term (current) use of insulin; Z79.891 Long term (current) use of opiate analgesic; Z79.82 Long term (current) use of aspirin
CPT/HCPCS: 36415; 70450; 71260; 72125; 74177; 80053; 80069; 81003; 82533; 82947; 84484; 85025; 85027; 93005; 93010; 94640; 94664; 94760; 96372; 96374-59; 96375; 96376; 97116; 97162; 99285-25; A9270; G0378; J1644; J1815; J2405; J3010; J7030; Q9967

== ENCOUNTER 2024-11-12 18:09 | Observation (INO) | payer OTHER, BC ==
[~2024-11-12] VITALS: Ht 167.6 cm; Wt 70.4 kg
[~2024-11-12 18:09] MED LIST changes: +ELEPSIA XR1500 MG PO; +FT SENNA-S 8.61 EACH PO; +GLUCOSE4 GM PO; +INSULANI SC; +LACOSAMIDE150 MG PO; +Mirapex0.5 MG PO; +SENN187 PO
[2024-11-12] MEDS ORDERED: Lactated Ringer's 1,000 ML IV ONE (18:20)
[2024-11-12] MEDS ORDERED: Mag Hydrox/AL Hydrox/Simeth 30 ML UDC PO ONE (18:25)
[2024-11-12 18:29] LABS: BASOPHILS ABSOLUTE AUTO 0.04 K/mm3 (0.00-0.23); BASOPHILS PERCENT AUTO 1 % (0-2); EOSINOPHILS ABSOLUTE AUTO 0.25 K/mm3 (0.00-0.68); EOSINOPHILS PERCENT AUTO 3 % (0-6); Hematocrit 45.2 % (37.0-53.0); IMMATURE GRAN ABSOLUTE AUTO 0.07 K/mm3 (0.00-0.10); IMMATURE GRAN PERCENT AUTO 1 % (0-1); LYMPHOCYTES PERCENT AUTO 21 % (21-46); MONOCYTES ABSOLUTE AUTO 0.85 K/mm3 (0.16-1.47); MONOCYTES PERCENT AUTO 11 % (4-13); Mean Corpuscular HGB 31.4 pg (26.0-34.0); Mean Corpuscular HGB Conc 35.4 g/dL (31.5-36.5); Mean Corpuscular Volume 89 fL (80-100); Mean Platelet Volume 10.1 fL (9.1-12.4); NEUTROPHILS ABSOLUTE AUTO 5.03 K/mm3 (1.96-9.15); NEUTROPHILS PERCENT AUTO 63 % (41-73); Platelet Count 251 K/mm3 (150-400); RDW Standard Deviation 42.8 fL (35.1-46.3); White Blood Cell Count 7.94 K/mm3 (4.00-11.30)
[2024-11-12 18:47] LABS: Albumin, Blood 3.2 g/dL (3.4-5.0); Albumin/Globulin Ratio 0.9 (0.8-1.8); Beta-hydroxybutyrate 1.6 mg/dL (0.2-2.8); Bilirubin, Total 0.4 mg/dL (0.1-1.0); Calcium, Blood 9.3 mg/dL (8.5-10.1); Creatinine, Blood 0.58 mg/dL (0.60-1.20); Globulin, Blood 3.4 g/dL (2.2-4.0); Potassium, Blood 3.9 mmol/L (3.5-5.5); Total Protein, Blood 6.6 g/dL (6.4-8.2)
[2024-11-12 18:56] LABS: CORONAVIRUS COVID-19 AG Negative (NEGATIVE); INFLUENZA A AG Negative (NEGATIVE); INFLUENZA B AG Negative (NEGATIVE)
[2024-11-12 19:00] LABS: Base Excess Venous -0.6 mmol/L; Bicarbonate Venous 22.7 mmol/L (24.0-30.0); PCO2 Venous 47.3 mmHg (38-42); pH Blood Venous 7.34 (7.34-7.37)
[2024-11-12 20:19] LABS: Source, Urine Clean Catch
[2024-11-12 20:27] LABS: Bilirubin, Urine Neg (Neg); Blood, Urine Neg (Neg); Glucose Qualitative, Urine 4+ (Neg); Ketones, Urine Neg (Neg); Leukocyte Esterase, Urine Neg (Neg); Nitrite, Urine Neg (Neg); Protein, Urine Neg (Neg); Specific Gravity, Urine 1.015 (1.003-1.022); Urobilinogen, Urine NORM (Normal)
[2024-11-12 20:36] LABS: Appearance, Urine Clear (Clear); Color, Urine Yellow (P-Yellow)
[2024-11-12] MEDS ORDERED: FLU VACC TS2024-25(6MOS UP)/PF 45 MCG/0.5 ML SYRINGE IM ONE (22:30)
[2024-11-12] MEDS ORDERED: Ondansetron HCl 2 MG / ML 2ML Vial IV PRN (22:30)
[2024-11-12] MEDS ORDERED: NS 1,000 ML IV ONE (22:30)
[2024-11-12] MEDS ORDERED: Enoxaparin 40 MG/0.4 ML SYR SC SCH (23:00)
[2024-11-12 23:52] VITALS: BP 114/68
[2024-11-13] MEDS ORDERED: Calcium Carbonate 500 MG Tab Chew PO PRN (03:15)
[2024-11-13 03:45] VITALS: BP 123/62
--- NOTE | 2024-11-13 04:37 | NUR ---
NOC SUMMARY- PT ARRIVED TO ROOM IN NO DISTRESS. PT IS EATING AND DRINKING WITH OUT ISSUE. NO TELE EVENTS REPORTED. PT REMAINS SB @ 40'S. PT VOIDING VIA URINAL. PT CURRENTLY SLEEPING IN NO DISTRESS. CALL LIGHT IN REACH.
[2024-11-13 05:40] LABS: BASOPHILS ABSOLUTE AUTO 0.03 K/mm3 (0.00-0.23); BASOPHILS PERCENT AUTO 1 % (0-2); EOSINOPHILS ABSOLUTE AUTO 0.23 K/mm3 (0.00-0.68); EOSINOPHILS PERCENT AUTO 4 % (0-6); Hemoglobin 14.6 g/dL (13.5-17.5); IMMATURE GRAN ABSOLUTE AUTO 0.06 K/mm3 (0.00-0.10); IMMATURE GRAN PERCENT AUTO 1 % (0-1); LYMPHOCYTES ABSOLUTE AUTO 1.67 K/mm3 (0.84-5.20); LYMPHOCYTES PERCENT AUTO 26 % (21-46); MONOCYTES ABSOLUTE AUTO 0.71 K/mm3 (0.16-1.47); MONOCYTES PERCENT AUTO 11 % (4-13); Mean Corpuscular HGB 31.1 pg (26.0-34.0); Mean Corpuscular HGB Conc 35.6 g/dL (31.5-36.5); Mean Corpuscular Volume 87 fL (80-100); Mean Platelet Volume 10.9 fL (9.1-12.4); NEUTROPHILS ABSOLUTE AUTO 3.74 K/mm3 (1.96-9.15); NEUTROPHILS PERCENT AUTO 58 % (41-73); Platelet Count 238 K/mm3 (150-400); RDW Standard Deviation 41.1 fL (35.1-46.3); White Blood Cell Count 6.44 K/mm3 (4.00-11.30)
[2024-11-13 06:41] LABS: Albumin, Blood 2.9 g/dL (3.4-5.0); Bilirubin, Total 0.3 mg/dL (0.1-1.0); Bun/Creatinine Ratio 38.8 (12.0-20.0); Calcium, Blood 9.1 mg/dL (8.5-10.1); Creatinine, Blood 0.44 mg/dL (0.60-1.20); Globulin, Blood 2.8 g/dL (2.2-4.0); Potassium, Blood 3.5 mmol/L (3.5-5.5); Total Protein, Blood 5.7 g/dL (6.4-8.2)
[2024-11-13 07:00] VITALS: BP 120/59
[2024-11-13] MEDS ORDERED: Insulin Human Lispro 100 Units/ML 3ML Syringe SC SCH (07:30)
[2024-11-13 09:50] VITALS: BP 126/60
[2024-11-13] MEDS ORDERED: Pantoprazole Sodium 40 MG Tab PO SCH (13:25)
[2024-11-13 14:10] VITALS: BP 122/61
--- NOTE | 2024-11-13 17:11 | NUR ---
PATIENT IS ALERT AND ORIENTED AND COOPERATIVE WITH CARE. C/O DIZZINESS WITH STANDING AND SOME WHILE AMBULATING WITH PT. HE WAS ABLE TO AMBULATE IN THE HALLS AND SIT IN THE CHAIR. 1PA TO CHAIR. SLEEPS BETWEEN MEALS. ON RA. VSS. WILL CONTINUE TO MONITOR
[2024-11-13] MEDS ORDERED: Lactated Ringer's 1,000 ML IV SCH (19:25)
[2024-11-13 19:57] VITALS: BP 134/73
[2024-11-14 04:29] VITALS: BP 144/72
--- NOTE | 2024-11-14 05:24 | NUR ---
SHIFT SUMMARY PT HAS RESTED T/O THE NIGHT. PT DENIES PAIN. BLOOD PRESSURE HAS BEEN STABLE. NO REPORTS OF DIZZINESS. RESP E/U ON RA. IVF INFUSING. PT A/OX4, MAKES NEEDS KNOWN. PLAN OF CARE REMAINS UNCHANGED. BED IN LOWEST POSITION, CALL LIGHT WITHIN REACH.
[2024-11-14 05:50] LABS: BASOPHILS ABSOLUTE AUTO 0.03 K/mm3 (0.00-0.23); BASOPHILS PERCENT AUTO 1 % (0-2); EOSINOPHILS ABSOLUTE AUTO 0.25 K/mm3 (0.00-0.68); EOSINOPHILS PERCENT AUTO 5 % (0-6); Hematocrit 40.9 % (37.0-53.0); Hemoglobin 14.7 g/dL (13.5-17.5); IMMATURE GRAN ABSOLUTE AUTO 0.04 K/mm3 (0.00-0.10); IMMATURE GRAN PERCENT AUTO 1 % (0-1); LYMPHOCYTES ABSOLUTE AUTO 1.69 K/mm3 (0.84-5.20); LYMPHOCYTES PERCENT AUTO 30 % (21-46); MONOCYTES ABSOLUTE AUTO 0.75 K/mm3 (0.16-1.47); MONOCYTES PERCENT AUTO 13 % (4-13); Mean Corpuscular HGB 31.5 pg (26.0-34.0); Mean Corpuscular HGB Conc 35.9 g/dL (31.5-36.5); Mean Corpuscular Volume 88 fL (80-100); Mean Platelet Volume 10.4 fL (9.1-12.4); NEUTROPHILS ABSOLUTE AUTO 2.84 K/mm3 (1.96-9.15); NEUTROPHILS PERCENT AUTO 51 % (41-73); Platelet Count 227 K/mm3 (150-400); RDW Coefficient Variation 13.1 % (11.7-14.2); RDW Standard Deviation 42.1 fL (35.1-46.3); Red Blood Cell Count 4.67 M/mm3 (4.30-5.90)
[2024-11-14 06:34] LABS: Albumin/Globulin Ratio 1.1 (0.8-1.8); Bilirubin, Total 0.2 mg/dL (0.1-1.0); Bun/Creatinine Ratio 36.2 (12.0-20.0); Calcium, Blood 8.7 mg/dL (8.5-10.1); Creatinine, Blood 0.5 mg/dL (0.60-1.20); Globulin, Blood 2.8 g/dL (2.2-4.0); Magnesium, Blood 2.4 mg/dL (1.6-2.4); Phosphorus, Blood 2.8 mg/dL (2.5-4.9); Thyroid Stimulating Hormone 0.392 uIU/mL (0.360-4.800); Total Protein, Blood 5.8 g/dL (6.4-8.2)
[2024-11-14 07:27] VITALS: BP 147/80
[2024-11-14] MEDS ORDERED: Insulin Glargine-Yfgn 100 Unit/mL 3 ML SYR SC SCH (09:00)
[2024-11-14] MEDS ORDERED: PANT40 PO (11:21)
[2024-11-14] MEDS ORDERED: INSULIN LISPRO SC ONE (14:15)
[2024-11-14] MEDS ORDERED: INSULIN NPL SC ONE (14:15)
--- NOTE | 2024-11-14 14:36 | NUR ---
Pt. is awake in bed dressed and awaiting discharge when he welcomed my visit. Pt. is pleasant. Spouse is at bedide and dislays evidence of impatience regarding the wait for discharge. Facilitaed a short life review and considered matters of his service. Also considered matters of leonel and belief. Prayed with the Pt. and spouse. Pt. verbalized gratitude fo rthe spiritual care visit.
[2024-11-14] MEDS ORDERED: TIOT18 INH (15:21)
[2024-11-14] MEDS ORDERED: OZEMPIC0.25 MG/02 SQ (15:22)
[2024-11-14] MEDS ORDERED: DILT180 PO (15:24)
[2024-11-14] MEDS ORDERED: Cyclobenzaprine5 MG PO (15:25)
[2024-11-14] MEDS ORDERED: LISI5 PO ×2 (15:28→16:02)
[2024-11-14] MEDS ORDERED: METO25ER PO (15:28)
[2024-11-14] MEDS ORDERED: LEVE500 PO (15:28)
[2024-11-14] MEDS ORDERED: FENO145 PO (15:59)
[2024-11-14] MEDS ORDERED: GLUCOSE4 GM PO (16:00)
[2024-11-14] MEDS ORDERED: ELEPSIA XR1500 MG PO (16:01)
[2024-11-14] MEDS ORDERED: PRAMIPEXOLE0.375 MG PO (16:02)
[2024-11-14] MEDS ORDERED: SPIRIVA RESPIMAT4 G3 INH (16:03)
[2024-11-14] MEDS ORDERED: WEGOVY0.25 MG/0. SC (16:03)
[2024-11-14] MEDS ORDERED: INSULIN LISPRO SC SCH (17:00)
[2024-11-14] MEDS ORDERED: INSULIN NPL SC SCH (17:00)
--- NOTE | 2024-11-14 18:45 | NUR ---
SHIFT SUMMARY PT IS A/OX4, SBA IN THE ROOM, VOIDING APPROPRIATELY W/ URINAL. TOLERATING CONS CARB DIET, CBG'S IN 200'S MOST OF SHIFT, INSULIN GIVEN PER EMAR. PT DOES NOT KNOW HOME MEDS AND REPORTS LITTLE KNOWLEDGE REGARDING DIABETES DIAGNOSIS. PT'S CURRENT MED LIST OBTAINED FROM [facility] TO UPDATE MED REC. DISCHARGE INSTRUCTIONS REVIEWED W/ PT AND COPY GIVEN, HOWEVER PT'S RIDE WENT HOME AND PT STATED HE DOES NOT HAVE A RIDE. MERCHANDISE COLLECTOR CONSULTED W/ FAMILY, FAMILY MEMBER TO RETURN LATER TONIGHT TO GIVE PT A RIDE HOME. NOC RN NOTIFIED. CBG IN THE 90'S BEFORE DINNER TONIGHT, PT CURRENTLY SITTING IN CHAIR EATING DINNER. CALL LIGHT IN REACH, PT WAITING IN ROOM FOR RIDE.
--- NOTE | 2024-11-14 20:57 | NUR ---
DISCHARGE PT DISCHARGE COMPLETED BY TORY RN. PT'S DAUGHTER HAS ARRIVED TO TO TAKE PT HOME. IV AND TELE REMOVED BY SAMIA RN, AND PT DISCHARGED VIA WHEELCHAIR BY KENNEL STAFF MEMBER WITH DAUGHTER AT PT SIDE. BELONGINGS IN PLACE.
--- NOTE | 2024-11-14 21:02 | NUR ---
PT D/C HOME W/DAUGHTER RIDE. NO DISTRESS NOTED AT TIME OF DC, PT DENIED HAVING QUESTIONS. DC INSTRUCTIONS AND BELONGINGS SENT HOME W/PT.
== END 2024-11-14 21:00 | disposition home or self-care (01) ==
LOC: ER 18:09 → SURS 21:52 → ERHOLD 21:52 → SURS 21:53 → ERHOLD 23:11 → SURS 23:15
PROVIDERS: Hospitalist; Internal Medicine; ADMIT Student in an Organized Health Care Education/Training Program
DX: I95.9 Hypotension, unspecified (principal); E87.20 Acidosis, unspecified; I25.10 Atherosclerotic heart disease of native coronary artery without angina pectoris; G47.33 Obstructive sleep apnea (adult) (pediatric); J44.9 Chronic obstructive pulmonary disease, unspecified; N40.0 Benign prostatic hyperplasia without lower urinary tract symptoms; F03.90 Unspecified dementia, unspecified severity, without behavioral disturbance, psychotic disturbance, mood disturbance, and anxiety; E78.2 Mixed hyperlipidemia; K21.9 Gastro-esophageal reflux disease without esophagitis; I42.2 Other hypertrophic cardiomyopathy; E11.40 Type 2 diabetes mellitus with diabetic neuropathy, unspecified; G25.81 Restless legs syndrome; Z66 Do not resuscitate; Z79.899 Other long term (current) drug therapy; Z88.8 Allergy status to other drugs, medicaments and biological substances
CPT/HCPCS: 36415; 71045; 80053; 81003; 82010; 82533; 82803; 82947; 83036; 83605; 83690; 83735; 83880; 84100; 84443; 84484; 85025; 86850; 86900; 86901; 87428-QW; 93005; 93010; 96360; 96361; 96372; 97110; 97116; 97161; 97165; 97535; 99285-25; A9270; G0378; J1650; J1815; J7030; J7120

== ENCOUNTER 2025-01-19 05:37 | Emergency (ER) | payer OTHER, BC ==
[~2025-01-19] VITALS: Ht 177.8 cm; Wt 74.8 kg
[~2025-01-19 05:37] MED LIST changes: +LEVE500 PO; +OZEMPIC0.25 MG/02 SQ; +PANT40 PO; +PRAMIPEXOLE0.375 MG PO; +TIOT18 INH; +WEGOVY0.25 MG/0. SC
[2025-01-19 05:52] LABS: Base Excess Venous 4.9 mmol/L; Bicarbonate Venous 26.6 mmol/L (24.0-30.0); PCO2 Venous 48.1 mmHg (38-42)
[2025-01-19 05:55] LABS: BASOPHILS ABSOLUTE AUTO 0.07 K/mm3 (0.00-0.23); BASOPHILS PERCENT AUTO 1 % (0-2); EOSINOPHILS ABSOLUTE AUTO 0.38 K/mm3 (0.00-0.68); EOSINOPHILS PERCENT AUTO 5 % (0-6); Hematocrit 43.5 % (37.0-53.0); Hemoglobin 15.6 g/dL (13.5-17.5); IMMATURE GRAN ABSOLUTE AUTO 0.09 K/mm3 (0.00-0.10); IMMATURE GRAN PERCENT AUTO 1 % (0-1); LYMPHOCYTES PERCENT AUTO 23 % (21-46); MONOCYTES ABSOLUTE AUTO 0.96 K/mm3 (0.16-1.47); MONOCYTES PERCENT AUTO 12 % (4-13); Mean Corpuscular HGB Conc 35.9 g/dL (31.5-36.5); Mean Corpuscular Volume 87 fL (80-100); Mean Platelet Volume 10.3 fL (9.1-12.4); NEUTROPHILS ABSOLUTE AUTO 4.73 K/mm3 (1.96-9.15); NEUTROPHILS PERCENT AUTO 58 % (41-73); Platelet Count 251 K/mm3 (150-400); RDW Coefficient Variation 11.9 % (11.7-14.2); RDW Standard Deviation 37.8 fL (35.1-46.3); Red Blood Cell Count 5.03 M/mm3 (4.30-5.90); White Blood Cell Count 8.13 K/mm3 (4.00-11.30)
[2025-01-19 06:11] LABS: International Normalized Ratio 0.96; Prothrombin Time Results 10.3 Sec (9.7-11.5)
[2025-01-19 06:17] LABS: Albumin, Blood 3.3 g/dL (3.4-5.0); Bilirubin, Total 0.4 mg/dL (0.1-1.0); Calcium, Blood 8.9 mg/dL (8.5-10.1); Creatinine, Blood 0.59 mg/dL (0.60-1.20); Globulin, Blood 3.4 g/dL (2.2-4.0); Potassium, Blood 3.9 mmol/L (3.5-5.5); Total Protein, Blood 6.7 g/dL (6.4-8.2)
[2025-01-19 06:43] LABS: Source, Urine Clean Catch
[2025-01-19 06:56] LABS: Appearance, Urine Clear (Clear); Bilirubin, Urine Neg (Neg); Blood, Urine Neg (Neg); Glucose Qualitative, Urine 4+ (Neg); Ketones, Urine Neg (Neg); Leukocyte Esterase, Urine Neg (Neg); Nitrite, Urine Neg (Neg); Protein, Urine Neg (Neg); Urobilinogen, Urine NORM (Normal)
[2025-01-19 07:06] LABS: Color, Urine Pale Yellow (P-Yellow)
[2025-01-19] MEDS ORDERED: LORazepam 2 MG/ML 1ML Injection IV ONE ×3 (09:25→10:00)
[2025-01-19] MEDS ORDERED: dexmedeTOMIDine 100 ML IV SCH (09:40)
[2025-01-19] MEDS ORDERED: LORazepam 2 MG/ML 1ML Injection ONE ×2 (09:56→10:04)
[2025-01-19] MEDS ORDERED: levETIRAcetam 2,000 MG in NS 100 ML IV ONE ×2 (10:00→12:40)
[2025-01-19] MEDS ORDERED: FentaNYL Citrate 50 MCG/ML 2 ML Injection IV SCH (10:00)
[2025-01-19] MEDS ORDERED: Rocuronium Bromide 10 MG/ML 5ML Injection IV ONE ×2 (10:00→17:17)
[2025-01-19] MEDS ORDERED: propofoL 100 ML IV SCH (10:00)
[2025-01-19] MEDS ORDERED: Etomidate 2MG / ML 10ML Vial IV ONE ×2 (10:00→17:17)
[2025-01-19] MEDS ORDERED: NiCARdipine HCL 50 MG in NS 250 ML IV SCH (10:15)
[2025-01-19] MEDS ORDERED: Acetaminophen 650 MG Supp PR ONE (10:45)
[2025-01-19 11:27] LABS: Source, Urine Foley catheter
[2025-01-19 11:30] LABS: Appearance, Urine Clear (Clear); Bilirubin, Urine Neg (Neg); Blood, Urine Neg (Neg); Glucose Qualitative, Urine 4+ (Neg); Ketones, Urine Neg (Neg); Leukocyte Esterase, Urine Neg (Neg); Nitrite, Urine Neg (Neg); Protein, Urine 2+ (Neg); Urobilinogen, Urine NORM (Normal); pH, Urine 6.5 (5.0-8.0)
[2025-01-19 11:34] LABS: Base Excess Venous -1.3 mmol/L; Bicarbonate Venous 22.3 mmol/L (24.0-30.0); PCO2 Venous 46.1 mmHg (38-42); pH Blood Venous 7.33 (7.34-7.37)
[2025-01-19] MEDS ORDERED: fentaNYL citrate 1,000 MCG in NS 80 ML IV SCH (11:40)
[2025-01-19 11:45] LABS: Color, Urine Pale Yellow (P-Yellow)
[2025-01-19 11:47] LABS: Bacteria Rare /hpf; Red Blood Cells, Urine 0-2 /hpf (0-2); Squamous Epithelial Cells Not Seen /hpf (Few); White Blood Cells, Urine 0-2 /hpf (0-5)
[2025-01-19] MEDS ORDERED: Sodium Chloride 3% 250 ML IV SCH (12:20)
[2025-01-19 13:00] VITALS: BP 102/57
== END 2025-01-19 13:20 | disposition short-term general hospital (02) ==
LOC: ER 05:37
PROVIDERS: Emergency Medicine; Student in an Organized Health Care Education/Training Program
DX: I60.9 Nontraumatic subarachnoid hemorrhage, unspecified (principal); R56.9 Unspecified convulsions; I11.0 Hypertensive heart disease with heart failure; E11.40 Type 2 diabetes mellitus with diabetic neuropathy, unspecified; K21.9 Gastro-esophageal reflux disease without esophagitis; J44.9 Chronic obstructive pulmonary disease, unspecified; G47.33 Obstructive sleep apnea (adult) (pediatric); Z87.891 Personal history of nicotine dependence; Z88.8 Allergy status to other drugs, medicaments and biological substances; Z79.4 Long term (current) use of insulin; Z79.899 Other long term (current) drug therapy
CPT/HCPCS: 31500; 51702; 70250; 70450; 70496; 70498; 71045; 72125; 74018; 74177; 80053; 81001; 81003; 82803; 82947; 84484; 85025; 85610; 85730; 93005; 93010; 94002; 99285-25; A9270; J1953; J2060; J2704; J3010; J7050; Q9967